=== PATIENT | male | born 1940 | race Hispanic/Latino ===

== ENCOUNTER → 2017-04-14 | Outpatient (CLI) | payer OTHER, MEDICARE ==
[~2017-04-14] MED LIST: AMLO5TAB2 PO; FERS325 PO; FURO-152 PO; FURO20TA4 PO; LISI-613 PO; METF500T6 PO; METO25TA6 PO; METOPROLOL PO; OMEP20CA10 PO; SIME80TA29 PO; SIMV20TA6 PO; Simvastatin PO; TAMS0.4C32 PO; WARF-67 PO; WARF4TAB72 PO
== END | disposition home or self-care (01) ==
LOC: RAH 08:30
PROVIDERS: ATTEND Family Medicine
DX: I08.3 Combined rheumatic disorders of mitral, aortic and tricuspid valves (principal); I50.20 Unspecified systolic (congestive) heart failure; Z95.1 Presence of aortocoronary bypass graft; Z95.2 Presence of prosthetic heart valve; Z95.0 Presence of cardiac pacemaker
CPT/HCPCS: 76700; 93306

== ENCOUNTER 2017-04-20 21:57 | Emergency (ER) | payer OTHER, MEDICARE ==
[~2017-04-20 21:57] MED LIST changes: -AMLO5TAB2 PO; -FERS325 PO; -FURO20TA4 PO; -METOPROLOL PO; -SIME80TA29 PO; -SIMV20TA6 PO
[2017-04-20 22:53] LABS: APPEARANCE,URINE Clear (CLEAR); BILIRUBIN,URINE Negative (NEGATIVE); COLOR,URINE Yellow (YELLOW); GLUCOSE, URINE (UA) 250 mg/dL (NEGATIVE); KETONES,URINE Negative (NEGATIVE); LEUKOCYTE ESTERASE ,URINE Negative (NEGATIVE); NITRATE,URINE Negative (NEGATIVE); OCCULT BLOOD,URINE Moderate (NEGATIVE); PROTEIN,URINE 300 (NEGATIVE); UROBILINOGEN,URINE 0.2 mg/dL (0.2-1.0)
[2017-04-20 23:11] LABS: BACTERIA,URINE Few /HPF (None Seen); RBC,URINE 0-1 /HPF (0-1)
[2017-04-20 23:12] LABS: AMORPHOUS SEDIMENT,UR Few /LPF (None Seen); HYALINE CASTS, URINE 0-1 /LPF (0-1 /LPF); MUCUS,URINE Few LPF (None Seen); SQUAMOUS EPITHELIAL CELL,UR None Seen /LPF (0-2)
[2017-04-20] MEDS ORDERED: PHENAZOPYRIDINE HCL 200 MG TABLET ONE (23:23)
[2017-04-20 23:52] LABS: BASOPHILS % (AUTO) 0.2 % (0.0-5.0); EOSINOPHILS % (AUTO) 0.1 % (0.0-8.0); HEMATOCRIT 38.4 % (42-54); LYMPHOCYTES % (AUTO) 5.8 % (21.0-51.0); MEAN CORPUSCULAR HEMOGLOBIN 28.5 pg (27.0-33.0); MEAN CORPUSCULAR HGB CONC 32.9 g/dL (32.0-36.0); MEAN CORPUSCULAR VOLUME 86.4 fL (79-99); MONOCYTES % (AUTO) 9.2 % (3.0-13.0); NEUTROPHILS % (AUTO) 84.7 % (40.0-77.0); PLATELET COUNT (AUTO) 160 K/uL (130-400); RED BLOOD CELL COUNT(AUTO) 4.44 MIL/uL (4.50-6.20); RED CELL DISTRIBUTION WIDTH 13.8 % (11.0-15.5); WHITE BLOOD COUNT (AUTO) 11.5 K/uL (4.8-10.8)
[2017-04-20 23:59] LABS: CREATININE 1.3 mg/dL (0.5-1.5); POTASSIUM 4.3 mmol/L (3.5-5.1)
[2017-04-21 00:04] LABS: ALBUMIN 2.7 g/dL (3.5-5.0); BILIRUBIN,TOTAL 0.4 mg/dL (0.2-1.0)
[2017-04-21 01:07] LABS: INR 2.26 (0.85-1.15); PARTIAL THROMBOPLASTIN TIME 39.5 SEC (26.3-35.5); PROTHROMBIN TIME 23.4 SEC (9.6-11.6)
== END 2017-04-21 01:35 | disposition home or self-care (01) ==
LOC: EDH 21:57
DX: E11.9 Type 2 diabetes mellitus without complications (principal); R30.0 Dysuria; R35.0 Frequency of micturition; I10 Essential (primary) hypertension; E78.5 Hyperlipidemia, unspecified
CPT/HCPCS: 36415; 80053; 81001; 85025; 85610; 85730

== ENCOUNTER → 2017-06-12 | Outpatient (CLI) | payer OTHER, MEDICARE ==
[~2017-06-12] MED LIST changes: +AMLO5TAB2 PO; +FERS325 PO; +FURO20TA4 PO; +IOPAMIDOL-370 100 ML VIAL IV ONE; +METOPROLOL PO; +SIME80TA29 PO; +SIMV20TA6 PO
== END ==
LOC: RAH 07:28
PROVIDERS: ATTEND Family Medicine
DX: N28.1 Cyst of kidney, acquired (principal); N28.89 Other specified disorders of kidney and ureter
CPT/HCPCS: 74170; Q9967

== ENCOUNTER 2017-08-14 08:10 | Day surgery (SDC) | payer OTHER, MEDICARE ==
[2017-08-12 15:46] VITALS: BP 145/65
[2017-08-12 15:55] LABS: BASOPHILS % (AUTO) 0.4 % (0.0-5.0); EOSINOPHILS % (AUTO) 1.3 % (0.0-8.0); HEMATOCRIT 38.3 % (42-54); LYMPHOCYTES % (AUTO) 13.9 % (21.0-51.0); MEAN CORPUSCULAR HEMOGLOBIN 29.1 pg (27.0-33.0); MEAN CORPUSCULAR HGB CONC 32.9 g/dL (32.0-36.0); MEAN CORPUSCULAR VOLUME 88.4 fL (79-99); MONOCYTES % (AUTO) 10.8 % (3.0-13.0); NEUTROPHILS % (AUTO) 73.6 % (40.0-77.0); PLATELET COUNT (AUTO) 168 K/uL (130-400); RED BLOOD CELL COUNT(AUTO) 4.33 MIL/uL (4.50-6.20); RED CELL DISTRIBUTION WIDTH 14.8 % (11.0-15.5); WHITE BLOOD COUNT (AUTO) 7.1 K/uL (4.8-10.8)
[2017-08-12 16:02] LABS: APPEARANCE,URINE Clear (CLEAR); BILIRUBIN,URINE Negative (NEGATIVE); COLOR,URINE Yellow (YELLOW); GLUCOSE, URINE (UA) Negative (NEGATIVE); KETONES,URINE Trace mg/dL (NEGATIVE); LEUKOCYTE ESTERASE ,URINE Negative (NEGATIVE); NITRATE,URINE Negative (NEGATIVE); OCCULT BLOOD,URINE Small (NEGATIVE); PROTEIN,URINE 300 (NEGATIVE)
[2017-08-12 16:07] LABS: CREATININE 1.3 mg/dL (0.5-1.5); POTASSIUM 5.3 mmol/L (3.5-5.1)
[2017-08-12 16:11] LABS: INR 2.33 (0.85-1.15); PARTIAL THROMBOPLASTIN TIME 35.6 SEC (26.3-35.5); PROTHROMBIN TIME 24.1 SEC (9.6-11.6)
[2017-08-12 16:15] LABS: BACTERIA,URINE Few /HPF (None Seen); MUCUS,URINE Rare LPF (None Seen); SQUAMOUS EPITHELIAL CELL,UR Few /HPF (0-2)
[~2017-08-14] VITALS: Ht 158.8 cm; Wt 81.3 kg
[2017-08-14] VITALS (9 sets, daily range): BP systolic 125–156; BP diastolic 53–75
[~2017-08-14 08:10] MED LIST changes: -AMLO5TAB2 PO; -FERS325 PO; -FURO20TA4 PO; -IOPAMIDOL-370 100 ML VIAL IV ONE; -METOPROLOL PO; -SIME80TA29 PO; -SIMV20TA6 PO; +SODIUM CHLORIDE 0.9% 500ML 500 ML IV SCH
[2017-08-14 08:44] LABS: CREATININE 1.1 mg/dL (0.5-1.5); POTASSIUM 5.1 mmol/L (3.5-5.1)
[2017-08-14 08:51] LABS: INR 1.15 (0.85-1.15); PARTIAL THROMBOPLASTIN TIME 28.2 SEC (26.3-35.5)
[2017-08-14] MEDS ORDERED: FERS325 PO (09:05)
[2017-08-14] MEDS ORDERED: AMLO5TAB2 PO (09:05)
[2017-08-14] MEDS ORDERED: LISI-613 PO (09:05)
[2017-08-14] MEDS ORDERED: WARF-67 PO (09:05)
[2017-08-14] MEDS ORDERED: SIME80TA29 PO (09:05)
[2017-08-14] MEDS ORDERED: METOPROLOL PO (09:05)
[2017-08-14] MEDS ORDERED: SIMV20TA6 PO (09:08)
[2017-08-14] MEDS ORDERED: LIDOCAINE HCL 1% 20 ML VIAL ONE (09:25)
[2017-08-14] MEDS ORDERED: IOPAMIDOL-370 100 ML VIAL IV ONE (09:25)
[2017-08-14] MEDS ORDERED: ISOVUE-370 50ML VIAL IV ONE (09:25)
[2017-08-14] MEDS ORDERED: NITROGLYCERIN 5 MG/ML 10 ML VIAL IV ONE (09:25)
[2017-08-14] MEDS ORDERED: LIDOCAINE HCL 2% 20ML ONE (09:47)
[2017-08-14] MEDS ORDERED: LABETALOL HCL 5 MG/ML 20ML VIAL IV ONE (10:10)
[2017-08-14] MEDS ORDERED: DEXTROSE 50%-WATER 50 ML DISP.SYRIN IV PRN (10:15)
[2017-08-14] MEDS ORDERED: NITROGLYCERIN 0.4 MG SL TAB SL PRN (10:15)
[2017-08-14] MEDS ORDERED: GLUCAGON 1MG KIT 1 MG ML IM PRN (10:15)
[2017-08-14] MEDS ORDERED: FURO20TA4 PO (10:20)
[2017-08-14] MEDS ORDERED: INSULIN HUMULIN R 100 UNIT/ML 3ML SQ SCH (11:30)
== END 2017-08-14 15:02 | disposition home or self-care (01) ==
LOC: DAH 08:10
PROVIDERS: ATTEND Internal Medicine Cardiovascular Disease
DX: I35.0 Nonrheumatic aortic (valve) stenosis (principal); Z95.0 Presence of cardiac pacemaker; Z68.32 Body mass index [BMI] 32.0-32.9, adult; Z79.899 Other long term (current) drug therapy; I11.0 Hypertensive heart disease with heart failure; I50.89 Other heart failure; E11.9 Type 2 diabetes mellitus without complications; Z79.01 Long term (current) use of anticoagulants
CPT/HCPCS: 36415 ×2; 71045; 80048 ×2; 81001; 82948 ×2; 83880; 85025; 85610 ×2; 85730 ×2; 93005; 93454; A4606; C1760; C1894 ×2; J1644; J3490 ×3; Q9967

== ENCOUNTER 2017-09-26 06:02 | Observation (INO) | payer OTHER, MEDICARE ==
[2017-09-23 08:59] VITALS: BP 139/66
[2017-09-23 09:01] LABS: BASOPHILS % (AUTO) 0.3 % (0.0-5.0); EOSINOPHILS % (AUTO) 1.4 % (0.0-8.0); HEMATOCRIT 37.3 % (42-54); LYMPHOCYTES % (AUTO) 11.7 % (21.0-51.0); MEAN CORPUSCULAR HEMOGLOBIN 29.7 pg (27.0-33.0); MEAN CORPUSCULAR HGB CONC 33.6 g/dL (32.0-36.0); MEAN CORPUSCULAR VOLUME 88.3 fL (79-99); NEUTROPHILS % (AUTO) 77.6 % (40.0-77.0); PLATELET COUNT (AUTO) 154 K/uL (130-400); RED BLOOD CELL COUNT(AUTO) 4.23 MIL/uL (4.50-6.20); RED CELL DISTRIBUTION WIDTH 13.8 % (11.0-15.5); WHITE BLOOD COUNT (AUTO) 6.6 K/uL (4.8-10.8)
[2017-09-23 09:12] LABS: CREATININE 1.3 mg/dL (0.5-1.5); POTASSIUM 5.2 mmol/L (3.5-5.1)
[2017-09-23 09:13] LABS: INR 2.15 (0.85-1.15); PROTHROMBIN TIME 22.2 SEC (9.6-11.6)
[2017-09-26] VITALS (13 sets, daily range): BP systolic 109–149; BP diastolic 57–80
[~2017-09-26] VITALS: Ht 160 cm; Wt 81.1 kg
[2017-09-26] MEDS: CEFAZOLIN SODIUM 1 GM VIAL IVP SCH ×2 (05:00→22:39)
[~2017-09-26 06:02] MED LIST changes: +AMLO5TAB2 PO; +FERS325 PO; -FURO-152 PO; +FURO20TA4 PO; -METO25TA6 PO; +METOPROLOL PO; +SIME80TA29 PO; +SIMV20TA6 PO; -SODIUM CHLORIDE 0.9% 500ML 500 ML IV SCH; -Simvastatin PO; -WARF4TAB72 PO
[2017-09-26] MEDS ORDERED: SODIUM CHLORIDE 0.9% 1000ML 1,000 ML IV ONE (06:30)
[2017-09-26] MEDS ORDERED: FURO20TA4 PO (06:55)
[2017-09-26] MEDS ORDERED: BUPIVACAINE/PF 0.25% 30ML VIAL IJ ONE (09:50)
[2017-09-26] MEDS ORDERED: LIDOCAINE HCL-MPF 2% 5ML VIAL ONE (09:50)
[2017-09-26] MEDS ORDERED: CEFAZOLIN SODIUM 1 GM VIAL ONE (09:51)
[2017-09-26] MEDS ORDERED: MIDAZOLAM HCL 1 MG/ML 2ML VIAL ONE ×3 (09:51→11:21)
[2017-09-26] MEDS ORDERED: MEPERIDINE-PF 25 MG/ML SYG ONE ×3 (09:51→11:21)
[2017-09-26] MEDS ORDERED: IODIXANOL 320 MG/ML 100 ML VIAL ONE (10:26)
[2017-09-26] MEDS ORDERED: ACETAMINOPHEN 325 MG TAB PO PRN (12:00)
[2017-09-26] MEDS ORDERED: ACETAMINOPHEN-CODEINE 300/30MG TAB PO PRN ×2 (12:00)
[2017-09-26 13:36] LABS: INR 1.48 (0.85-1.15); PROTHROMBIN TIME 15.4 SEC (9.6-11.6)
[2017-09-26] MEDS: METOPROLOL TARTRATE 25 MG TAB PO SCH (20:18)
[2017-09-26] MEDS ORDERED: TAMSULOSIN HCL 0.4 MG CAP.ER.24H PO SCH (21:00)
[2017-09-26] MEDS ORDERED: ATORVASTATIN CALCIUM 10 MG TABLET PO SCH (21:00)
[2017-09-26] MEDS ORDERED: WARFARIN SODIUM 7.5 MG TAB PO SCH (21:00)
[2017-09-27 03:20] VITALS: BP 136/68
[2017-09-27 04:02] LABS: INR 1.34 (0.85-1.15)
[2017-09-27 07:21] VITALS: BP 146/79
[2017-09-27] MEDS: METOPROLOL TARTRATE 25 MG TAB PO SCH (07:58)
[2017-09-27] MEDS ORDERED: PANTOPRAZOLE SODIUM 40 MG TABLET.DR PO SCH (09:00)
[2017-09-27] MEDS ORDERED: SIMETHICONE 80 MG TAB.CHEW PO SCH (09:00)
[2017-09-27] MEDS ORDERED: AMLODIPINE BESYLATE 5 MG TAB PO SCH (09:00)
[2017-09-27] MEDS ORDERED: LISINOPRIL 20 MG TABLET PO SCH (09:00)
[2017-09-27] MEDS ORDERED: FUROSEMIDE 20 MG TABLET PO SCH (09:00)
== END 2017-09-27 12:06 | disposition home or self-care (01) ==
LOC: DAH 06:02 → 2DH 06:03
PROVIDERS: ADMIT Internal Medicine Pulmonary Disease; ATTEND Internal Medicine Pulmonary Disease
DX: I44.2 Atrioventricular block, complete (principal); I11.0 Hypertensive heart disease with heart failure; I50.22 Chronic systolic (congestive) heart failure; E11.9 Type 2 diabetes mellitus without complications; N40.0 Benign prostatic hyperplasia without lower urinary tract symptoms; I48.91 Unspecified atrial fibrillation; Z95.2 Presence of prosthetic heart valve; Z95.810 Presence of automatic (implantable) cardiac defibrillator; Z79.01 Long term (current) use of anticoagulants; Z79.899 Other long term (current) drug therapy
CPT/HCPCS: 33225; 33233; 33234; 33249; 36415 ×3; 71045; 80048; 82948 ×4; 85025; 85610 ×3; 85730; 93005; A4606; C1769; C1882; C1895 ×2; C1900; G0378 ×30; J0690; J2175 ×3; J2250 ×3; J3490 ×2; J7030; Q9967; 99156; 99157

== ENCOUNTER 2017-12-28 03:32 | Inpatient (IN) | payer OTHER, MEDICARE ==
[~2017-12-28] VITALS: Ht 160 cm; Wt 80.3 kg
[~2017-12-28 03:32] MED LIST changes: -AMLO5TAB2 PO; +AMLO5TAB7 PO; +METF-444 PO; -METF500T6 PO
[2017-12-28 03:51] LABS: BASOPHILS % (AUTO) 0.7 % (0.0-5.0); EOSINOPHILS % (AUTO) 1.1 % (0.0-8.0); LYMPHOCYTES % (AUTO) 10.5 % (21.0-51.0); MEAN CORPUSCULAR HEMOGLOBIN 28.6 pg (27.0-33.0); MEAN CORPUSCULAR HGB CONC 33.2 g/dL (32.0-36.0); MEAN CORPUSCULAR VOLUME 86.3 fL (79-99); MONOCYTES % (AUTO) 10.8 % (3.0-13.0); NEUTROPHILS % (AUTO) 76.9 % (40.0-77.0); PLATELET COUNT (AUTO) 132 K/uL (130-400); RED BLOOD CELL COUNT(AUTO) 4.17 MIL/uL (4.50-6.20); RED CELL DISTRIBUTION WIDTH 14.8 % (11.0-15.5); WHITE BLOOD COUNT (AUTO) 7.9 K/uL (4.8-10.8)
[2017-12-28 04:03] LABS: INR 2.41 (0.85-1.15); PARTIAL THROMBOPLASTIN TIME 36.4 SEC (26.3-35.5); PROTHROMBIN TIME 24.9 SEC (9.6-11.6)
[2017-12-28 04:13] LABS: CREATININE 1.3 mg/dL (0.5-1.5); POTASSIUM 4.1 mmol/L (3.5-5.1)
[2017-12-28 04:24] LABS: ALBUMIN 3.4 g/dL (3.5-5.0); BILIRUBIN,TOTAL 0.8 mg/dL (0.2-1.0)
[2017-12-28] MEDS ORDERED: FUROSEMIDE 10 MG/ML 4ML VIAL ONE (04:33)
[2017-12-28 04:36] LABS: APPEARANCE,URINE Clear (CLEAR); BILIRUBIN,URINE Negative (NEGATIVE); COLOR,URINE Yellow (YELLOW); GLUCOSE, URINE (UA) Negative (NEGATIVE); KETONES,URINE Negative (NEGATIVE); LEUKOCYTE ESTERASE ,URINE Trace (NEGATIVE); NITRATE,URINE Negative (NEGATIVE); OCCULT BLOOD,URINE Moderate (NEGATIVE); PROTEIN,URINE 300 (NEGATIVE)
[2017-12-28 04:42] LABS: BACTERIA,URINE None Seen /HPF (None Seen); SQUAMOUS EPITHELIAL CELL,UR Moderate /HPF (0-2)
[2017-12-28] MEDS ORDERED: POTASSIUM CHLORIDE 20MEQ/100ML 100 ML IV PRN (06:30)
[2017-12-28] MEDS ORDERED: POTASSIUM CHLORIDE 10% ELIXIR 20 MEQ/15 ML UDCUP PO PRN (06:30)
[2017-12-28] MEDS ORDERED: LIDOCAINE HCL-MPF 1% 2ML VIAL IJ PRN (06:30)
[2017-12-28] MEDS: FUROSEMIDE 10 MG/ML 2ML VIAL IVP SCH ×3 (06:30→22:39)
[2017-12-28] MEDS: INSULIN R PO SS1 SQ SCH ×3 (07:30→21:00)
[2017-12-28 08:45] VITALS: BP 163/88
[2017-12-28] MEDS ORDERED: LISINOPRIL 20 MG TABLET ONE (10:22)
[2017-12-28] MEDS ORDERED: METOPROLOL TARTRATE 25 MG TAB ONE (10:23)
[2017-12-28] MEDS ORDERED: AMLODIPINE BESYLATE 5 MG TAB PO ONE (10:23)
[2017-12-28] MEDS: METOPROLOL TARTRATE 25 MG TAB PO SCH ×2 (10:31→21:09)
[2017-12-28] MEDS: PANTOPRAZOLE SODIUM 40 MG TABLET.DR PO SCH (10:31)
[2017-12-28] MEDS: LISINOPRIL 20 MG TABLET PO SCH ×2 (10:31→10:32)
[2017-12-28] MEDS: AMLODIPINE BESYLATE 5 MG TAB PO SCH (10:32)
[2017-12-28 12:30] VITALS: BP 150/75
[2017-12-28 16:56] VITALS: BP 144/70
[2017-12-28] MEDS: METFORMIN HCL 500 MG TABLET PO SCH (17:42)
[2017-12-28 19:45] VITALS: BP 172/79
[2017-12-28] MEDS: FERROUS SULFATE 325 MG TABLET.DR PO SCH (21:09)
[2017-12-28] MEDS: WARFARIN SODIUM 2 MG TAB PO SCH (21:09)
[2017-12-28] MEDS: TAMSULOSIN HCL 0.4 MG CAP.ER.24H PO SCH (21:09)
[2017-12-28] MEDS: SIMVASTATIN 20 MG TABLET PO SCH (21:09)
[2017-12-28 23:39] VITALS: BP 139/57
[2017-12-29 03:57] VITALS: BP 147/66
[2017-12-29 06:17] LABS: CREATININE 1.4 mg/dL (0.5-1.5); MAGNESIUM 1.7 mg/dL (1.80-2.40); POTASSIUM 3.7 mmol/L (3.5-5.1)
[2017-12-29] MEDS: INSULIN R PO SS1 SQ SCH ×4 (06:50→20:21)
[2017-12-29] MEDS: FUROSEMIDE 10 MG/ML 2ML VIAL IVP SCH ×3 (06:51→23:05)
[2017-12-29 08:16] VITALS: BP 148/72
[2017-12-29] MEDS: PANTOPRAZOLE SODIUM 40 MG TABLET.DR PO SCH (09:37)
[2017-12-29] MEDS: METOPROLOL TARTRATE 25 MG TAB PO SCH ×2 (09:37→21:03)
[2017-12-29] MEDS: LISINOPRIL 20 MG TABLET PO SCH (09:38)
[2017-12-29] MEDS: AMLODIPINE BESYLATE 5 MG TAB PO SCH (09:38)
[2017-12-29] MEDS: SIMETHICONE 80 MG TAB.CHEW PO SCH (09:38)
[2017-12-29 11:36] VITALS: BP 149/63
[2017-12-29 15:56] VITALS: BP 151/75
[2017-12-29] MEDS: METFORMIN HCL 500 MG TABLET PO SCH (16:34)
[2017-12-29 19:00] VITALS: BP 160/80
[2017-12-29] MEDS: SIMVASTATIN 20 MG TABLET PO SCH (21:03)
[2017-12-29] MEDS: TAMSULOSIN HCL 0.4 MG CAP.ER.24H PO SCH (21:03)
[2017-12-29] MEDS: FERROUS SULFATE 325 MG TABLET.DR PO SCH (21:03)
[2017-12-29] MEDS: WARFARIN SODIUM 2 MG TAB PO SCH (21:05)
[2017-12-30] VITALS: BP 162/85
[2017-12-30 04:00] VITALS: BP 157/70
[2017-12-30 05:05] LABS: BASOPHILS % (AUTO) 0.5 % (0.0-5.0); EOSINOPHILS % (AUTO) 1.3 % (0.0-8.0); LYMPHOCYTES % (AUTO) 9.2 % (21.0-51.0); MEAN CORPUSCULAR HEMOGLOBIN 28.6 pg (27.0-33.0); MEAN CORPUSCULAR HGB CONC 33.2 g/dL (32.0-36.0); MEAN CORPUSCULAR VOLUME 85.9 fL (79-99); MONOCYTES % (AUTO) 12.3 % (3.0-13.0); NEUTROPHILS % (AUTO) 76.7 % (40.0-77.0); PLATELET COUNT (AUTO) 119 K/uL (130-400); RED BLOOD CELL COUNT(AUTO) 3.96 MIL/uL (4.50-6.20); RED CELL DISTRIBUTION WIDTH 14.7 % (11.0-15.5); WHITE BLOOD COUNT (AUTO) 5.7 K/uL (4.8-10.8)
[2017-12-30 05:18] LABS: INR 2.2 (0.85-1.15); PARTIAL THROMBOPLASTIN TIME 36.4 SEC (26.3-35.5); PROTHROMBIN TIME 22.7 SEC (9.6-11.6)
[2017-12-30 05:28] LABS: ALBUMIN 3.1 g/dL (3.5-5.0); BILIRUBIN,TOTAL 0.8 mg/dL (0.2-1.0); CREATININE 1.4 mg/dL (0.5-1.5); HEMOGLOBIN A1C 6.8 % (4.0-6.0); MAGNESIUM 1.7 mg/dL (1.80-2.40); PHOSPHORUS 3.6 mg/dL (2.5-4.9); POTASSIUM 3.7 mmol/L (3.5-5.1); THYROID STIMULATING HORMONE 2.74 uIU/mL (0.36-3.74); TOTAL PROTEIN, SERUM 6.7 g/dL (6.0-8.3)
[2017-12-30] MEDS: FUROSEMIDE 10 MG/ML 2ML VIAL IVP SCH ×2 (06:05→14:17)
[2017-12-30] MEDS: INSULIN R PO SS1 SQ SCH ×4 (06:05→20:52)
[2017-12-30 06:20] LABS: B-TYPE NATRIURETIC PEPTIDE 833 pg/mL (0-100)
[2017-12-30 07:00] VITALS: BP 164/88
[2017-12-30 08:17] LABS: ABG BASE EXCESS 6.1 mmol/L (-2.0-3.0); ABG HCO3 31.8 mmol/L (21.0-28.0); ABG OXYGEN SATURATION 90.6 % (95.0-99.0); ABG PCO2 50 mmHg (35-48)
[2017-12-30] MEDS: PANTOPRAZOLE SODIUM 40 MG TABLET.DR PO SCH (08:55)
[2017-12-30] MEDS: METOPROLOL TARTRATE 25 MG TAB PO SCH ×2 (08:55→20:58)
[2017-12-30] MEDS: SIMETHICONE 80 MG TAB.CHEW PO SCH (08:55)
[2017-12-30] MEDS: LISINOPRIL 20 MG TABLET PO SCH (08:56)
[2017-12-30] MEDS: AMLODIPINE BESYLATE 5 MG TAB PO SCH (09:29)
[2017-12-30 11:00] VITALS: BP_SYST 132; BP_SYST 145; BP_DIAS 54; BP_DIAS 70
[2017-12-30] MEDS ORDERED: MAGNESIUM SULFATE 2 GM in SODIUM CHLORIDE 0.9% 50 ML IV SCH (11:30)
[2017-12-30 16:00] VITALS: BP 144/72
[2017-12-30] MEDS: METFORMIN HCL 500 MG TABLET PO SCH (17:13)
[2017-12-30 19:00] VITALS: BP 134/71
[2017-12-30] MEDS: FERROUS SULFATE 325 MG TABLET.DR PO SCH (20:57)
[2017-12-30] MEDS: SIMVASTATIN 20 MG TABLET PO SCH (21:00)
[2017-12-30] MEDS: TAMSULOSIN HCL 0.4 MG CAP.ER.24H PO SCH (21:00)
[2017-12-30] MEDS: WARFARIN SODIUM 2 MG TAB PO SCH (21:02)
[2017-12-30] MEDS: FUROSEMIDE 20 MG TABLET PO SCH (22:18)
[2017-12-31] VITALS (7 sets, daily range): BP systolic 127–150; BP diastolic 65–77
[2017-12-31 04:49] LABS: CREATININE 1.4 mg/dL (0.5-1.5); MAGNESIUM 1.8 mg/dL (1.80-2.40); PHOSPHORUS 3.8 mg/dL (2.5-4.9); POTASSIUM 3.3 mmol/L (3.5-5.1)
[2017-12-31] MEDS ORDERED: MAGNESIUM 2GM PREMIX 50ML 50 ML IV ONE (05:12)
[2017-12-31] MEDS ORDERED: SODIUM CHLORIDE 0.9% 500ML 500 ML IV ONE (05:13)
[2017-12-31] MEDS: POTASSIUM CHLORIDE 20 MEQ ERTAB PO PRN ×2 (05:16→06:41)
[2017-12-31] MEDS: INSULIN R PO SS1 SQ SCH ×4 (06:40→20:37)
[2017-12-31 07:38] LABS: ABG BASE EXCESS 6.8 mmol/L (-2.0-3.0); ABG HCO3 31.8 mmol/L (21.0-28.0); ABG OXYGEN SATURATION 92.2 % (95.0-99.0); ABG PCO2 46 mmHg (35-48)
[2017-12-31] MEDS: METOPROLOL TARTRATE 25 MG TAB PO SCH ×2 (09:14→20:37)
[2017-12-31] MEDS: SIMETHICONE 80 MG TAB.CHEW PO SCH (09:14)
[2017-12-31] MEDS: AMLODIPINE BESYLATE 5 MG TAB PO SCH (09:14)
[2017-12-31] MEDS: FUROSEMIDE 20 MG TABLET PO SCH (09:14)
[2017-12-31] MEDS: PANTOPRAZOLE SODIUM 40 MG TABLET.DR PO SCH (09:14)
[2017-12-31] MEDS: LISINOPRIL 20 MG TABLET PO SCH (09:14)
[2017-12-31 10:12] LABS: CREATININE 1.3 mg/dL (0.5-1.5); MAGNESIUM 2.2 mg/dL (1.80-2.40); POTASSIUM 4.1 mmol/L (3.5-5.1)
[2017-12-31] MEDS ORDERED: FUROSEMIDE 20 MG TABLET PO SCH ×2 (16:00)
[2017-12-31] MEDS: FUROSEMIDE 10 MG/ML 4ML VIAL IV SCH (18:15)
[2017-12-31] MEDS ORDERED: FUROSEMIDE 10 MG/ML 4ML VIAL ONE (18:26)
[2017-12-31] MEDS: METFORMIN HCL 500 MG TABLET PO SCH (18:31)
[2017-12-31] MEDS: FERROUS SULFATE 325 MG TABLET.DR PO SCH (20:36)
[2017-12-31] MEDS: TAMSULOSIN HCL 0.4 MG CAP.ER.24H PO SCH (20:37)
[2017-12-31] MEDS: SIMVASTATIN 20 MG TABLET PO SCH (20:37)
[2017-12-31] MEDS: WARFARIN SODIUM 2 MG TAB PO SCH (20:37)
[2018-01-01 03:46] VITALS: BP 145/69
[2018-01-01 05:06] LABS: HEMATOCRIT 33.8 % (42-54); MEAN CORPUSCULAR HEMOGLOBIN 28.6 pg (27.0-33.0); MEAN CORPUSCULAR HGB CONC 33.2 g/dL (32.0-36.0); MEAN CORPUSCULAR VOLUME 86.3 fL (79-99); PLATELET COUNT (AUTO) 118 K/uL (130-400); RED BLOOD CELL COUNT(AUTO) 3.91 MIL/uL (4.50-6.20); RED CELL DISTRIBUTION WIDTH 14.8 % (11.0-15.5); WHITE BLOOD COUNT (AUTO) 5.1 K/uL (4.8-10.8)
[2018-01-01 05:19] LABS: ALBUMIN 3.2 g/dL (3.5-5.0); BILIRUBIN,TOTAL 0.7 mg/dL (0.2-1.0); CREATININE 1.4 mg/dL (0.5-1.5); POTASSIUM 3.9 mmol/L (3.5-5.1)
[2018-01-01] MEDS: INSULIN R PO SS1 SQ SCH (05:49)
[2018-01-01] MEDS: FUROSEMIDE 10 MG/ML 4ML VIAL IV SCH (06:04)
[2018-01-01 07:00] VITALS: BP 160/74
[2018-01-01] MEDS: PANTOPRAZOLE SODIUM 40 MG TABLET.DR PO SCH (10:54)
[2018-01-01] MEDS: SIMETHICONE 80 MG TAB.CHEW PO SCH (10:54)
[2018-01-01] MEDS: METOPROLOL TARTRATE 25 MG TAB PO SCH (10:54)
[2018-01-01] MEDS: AMLODIPINE BESYLATE 5 MG TAB PO SCH (10:55)
[2018-01-01] MEDS: LISINOPRIL 20 MG TABLET PO SCH (10:55)
[2018-01-01 11:00] VITALS: BP 128/75
== END 2018-01-01 14:05 | disposition home or self-care (01) | DRG 291 ==
LOC: EDH 03:32 → OBSVTOIN 05:25 → EDHIP 05:25 → INTOOBSV 05:25 → 3AH 08:15 → 3CH 12-29 08:45
PROVIDERS: ADMIT Internal Medicine Critical Care Medicine; ATTEND Internal Medicine Critical Care Medicine
DX: I13.0 Hypertensive heart and chronic kidney disease with heart failure and stage 1 through stage 4 chronic kidney disease, or unspecified chronic kidney disease (principal); J96.01 Acute respiratory failure with hypoxia; I50.43 Acute on chronic combined systolic (congestive) and diastolic (congestive) heart failure; I42.9 Cardiomyopathy, unspecified; N18.3 Chronic kidney disease, stage 3 (moderate); E11.22 Type 2 diabetes mellitus with diabetic chronic kidney disease; I48.2 Chronic atrial fibrillation; E78.5 Hyperlipidemia, unspecified; Z79.01 Long term (current) use of anticoagulants; Z95.0 Presence of cardiac pacemaker; Z95.2 Presence of prosthetic heart valve; Z91.19 Patient's noncompliance with other medical treatment and regimen
CPT/HCPCS: 36415; 36600; 71045; 71046; 80048; 80053; 80061; 81001; 81003; 82550; 82803; 82948; 83036; 83735; 83874; 83880; 84100; 84439; 84443; 84484; 85025; 85027; 85610; 85730; 93005; 93306; J1940; J3475; J7040

== ENCOUNTER 2022-02-27 17:42 | Observation (INO) | payer OTHER, MEDICARE ==
[~2022-02-27] VITALS: Ht 157.5 cm; Wt 67.9 kg
[~2022-02-27 17:42] MED LIST changes: +AMLO-257 PO; -AMLO5TAB7 PO; -FURO20TA4 PO; -LISI-613 PO; +LISI20TA24 PO; -OMEP20CA10 PO; +OMEP20CA12 PO; -SIME80TA29 PO; +SIME80TA78 PO; +SIMV-43 PO; -SIMV20TA6 PO
[2022-02-27 18:40] LABS: BASOPHILS % (AUTO) 0.2 % (0.0-5.0); EOSINOPHILS % (AUTO) 0.3 % (0.0-8.0); HEMATOCRIT 33.5 % (42-54); LYMPHOCYTES % (AUTO) 6.9 % (21.0-51.0); MEAN CORPUSCULAR HEMOGLOBIN 28.3 pg (27.0-33.0); MEAN CORPUSCULAR HGB CONC 32.2 g/dL (32.0-36.0); MEAN CORPUSCULAR VOLUME 87.7 fL (79-99); MONOCYTES % (AUTO) 7.6 % (3.0-13.0); NEUTROPHILS % (AUTO) 83.8 % (40.0-77.0); PLATELET COUNT (AUTO) 321 K/uL (130-400); RED BLOOD CELL COUNT(AUTO) 3.82 MIL/uL (4.50-6.20); RED CELL DISTRIBUTION WIDTH 14.2 % (11.0-15.5); WHITE BLOOD COUNT (AUTO) 11.8 K/uL (4.8-10.8)
[2022-02-27 18:52] LABS: CREATININE 1.4 mg/dL (0.5-1.5); POTASSIUM 4.2 mmol/L (3.5-5.1)
[2022-02-27 18:57] LABS: ALBUMIN 2.8 g/dL (3.5-5.0); TOTAL PROTEIN, SERUM 7.6 g/dL (6.0-8.3)
[2022-02-27] MEDS ORDERED: ONDANSETRON 4MG INJ IVP PRN (23:00)
[2022-02-27] MEDS ORDERED: MORPHINE 4 MG SYG IVP PRN (23:00)
[2022-02-27] MEDS ORDERED: ASPIRIN 325MG TAB PO ONE (23:00)
[2022-02-27] MEDS ORDERED: HYDRALAZINE 20MG/ML VIAL IV PRN (23:00)
[2022-02-27] MEDS ORDERED: ALBUTEROL 0.083% 2.5 MG/3 ML INH IH PRN (23:00)
[2022-02-27] MEDS ORDERED: ACETAMINOPHEN 325 MG TAB PO PRN (23:00)
[2022-02-27 23:22] LABS: APPEARANCE,URINE CLEAR (CLEAR); BILIRUBIN,URINE NEGATIVE (NEGATIVE); COLOR,URINE YELLOW (YELLOW); GLUCOSE, URINE (UA) >=1000 mg/dL (NEGATIVE); KETONES,URINE NEGATIVE (NEGATIVE); LEUKOCYTE ESTERASE ,URINE NEGATIVE Leu/uL (NEGATIVE); NITRATE,URINE NEGATIVE (NEGATIVE); OCCULT BLOOD,URINE MODERATE (NEGATIVE); PROTEIN,URINE 200 mg/dL (NEGATIVE); UROBILINOGEN,URINE 0.2 mg/dL (0.2-1.0)
[2022-02-27 23:31] LABS: BACTERIA,URINE RARE /HPF (None Seen); SQUAMOUS EPITHELIAL CELL,UR RARE /HPF (0-2)
[2022-02-28 06:26] LABS: HEMATOCRIT 32.2 % (42-54); MEAN CORPUSCULAR HEMOGLOBIN 28.1 pg (27.0-33.0); MEAN CORPUSCULAR HGB CONC 31.7 g/dL (32.0-36.0); MEAN CORPUSCULAR VOLUME 88.7 fL (79-99); RED BLOOD CELL COUNT(AUTO) 3.63 MIL/uL (4.50-6.20); WHITE BLOOD COUNT (AUTO) 9.6 K/uL (4.8-10.8)
[2022-02-28 06:47] LABS: CREATININE 1.2 mg/dL (0.5-1.5); MAGNESIUM 2.3 mg/dL (1.80-2.40); PHOSPHORUS 3.8 mg/dL (2.5-4.9); POTASSIUM 3.8 mmol/L (3.5-5.1)
[2022-02-28] MEDS: INSULIN HUMULIN R 100 UNIT/ML 3ML SQ SCH ×4 (07:30→20:18)
[2022-02-28] MEDS: ASPIRIN 81MG CHEW TAB PO SCH (08:51)
[2022-02-28] MEDS ORDERED: LEVOFLOXACIN 500 MG/D5W 100 ML IV SCH (09:00)
[2022-02-28] MEDS ORDERED: ENOXAPARIN SODIUM 80 MG/0.8 ML SQ SCH (09:00)
[2022-02-28] MEDS: FUROSEMIDE 40MG VIAL IV SCH ×2 (09:21→16:30)
[2022-02-28] MEDS ORDERED: KCL 20 MEQ ERTAB PO PRN (09:30)
[2022-02-28] MEDS ORDERED: LIDOCAINE HCL-MPF 1% 2ML VIAL IV PRN (09:30)
[2022-02-28] MEDS ORDERED: POTASSIUM CHLORIDE 20MEQ/100ML 100 ML IV PRN (09:30)
[2022-02-28] MEDS ORDERED: POTASSIUM CHLORIDE 10% ELIXIR 20 MEQ/15 ML UDCUP PO PRN (09:30)
[2022-02-28] MEDS: METOPROLOL SUCCINATE 25 MG TAB.SR.24H PO SCH (09:36)
[2022-02-28] MEDS ORDERED: OLOP2.5D16 OP (09:44)
[2022-02-28] MEDS ORDERED: ACET500C4 PO (09:44)
[2022-02-28] MEDS ORDERED: METO-408 PO (09:44)
[2022-02-28] MEDS ORDERED: FOLI0.8T2 PO (09:44)
[2022-02-28] MEDS ORDERED: FURO20TA4 PO (09:44)
[2022-02-28] MEDS ORDERED: DAPA10TA PO (09:44)
[2022-02-28 11:00] VITALS: BP 153/67
[2022-02-28 12:00] VITALS: BP 142/81
[2022-02-28 14:25] LABS: PROTHROMBIN TIME 67.7 SEC (9.6-11.6)
[2022-02-28 14:26] LABS: INR 6.93 (0.85-1.15)
[2022-02-28 16:00] VITALS: BP 152/87
[2022-02-28 20:17] VITALS: BP 142/77
[2022-02-28] MEDS ORDERED: SIMVASTATIN 20 MG TABLET PO SCH ×2 (21:00)
[2022-02-28] MEDS ORDERED: WARFARIN SODIUM 2 MG TAB PO SCH (21:00)
[2022-03-01 00:08] VITALS: BP 138/66
[2022-03-01] MEDS: FUROSEMIDE 40MG VIAL IV SCH ×2 (01:30→08:41)
[2022-03-01 04:06] VITALS: BP 144/76
[2022-03-01 04:23] LABS: HEMATOCRIT 29.9 % (42-54); MEAN CORPUSCULAR HEMOGLOBIN 28.5 pg (27.0-33.0); MEAN CORPUSCULAR HGB CONC 32.4 g/dL (32.0-36.0); MEAN CORPUSCULAR VOLUME 87.9 fL (79-99); RED BLOOD CELL COUNT(AUTO) 3.4 MIL/uL (4.50-6.20); RED CELL DISTRIBUTION WIDTH 14.1 % (11.0-15.5); WHITE BLOOD COUNT (AUTO) 8.7 K/uL (4.8-10.8)
[2022-03-01 04:39] LABS: ALBUMIN 2.3 g/dL (3.5-5.0); CREATININE 1.3 mg/dL (0.5-1.5); MAGNESIUM 2.2 mg/dL (1.80-2.40); POTASSIUM 4.3 mmol/L (3.5-5.1); TOTAL PROTEIN, SERUM 6.6 g/dL (6.0-8.3)
[2022-03-01 05:01] LABS: INR 4.3 (0.85-1.15); PROTHROMBIN TIME 43.2 SEC (9.6-11.6)
[2022-03-01] MEDS: INSULIN HUMULIN R 100 UNIT/ML 3ML SQ SCH ×2 (06:38→11:44)
[2022-03-01 08:00] VITALS: BP 124/59
[2022-03-01] MEDS: METOPROLOL SUCCINATE 25 MG TAB.SR.24H PO SCH (08:47)
[2022-03-01] MEDS: ASPIRIN 81MG CHEW TAB PO SCH (08:47)
[2022-03-01] MEDS ORDERED: Vitamin B Complex/Vit C/Folic Acid PO SCH (09:00)
[2022-03-01] MEDS ORDERED: AMLODIPINE 5 MG TAB PO SCH (09:00)
[2022-03-01] MEDS ORDERED: SIMETHICONE 80 MG TAB.CHEW PO SCH (09:00)
[2022-03-01] MEDS ORDERED: FAMOTIDINE 20MG TAB PO SCH (09:00)
[2022-03-01] MEDS ORDERED: OLOPATADINE HCL 0.1% 5ML DROPS OP SCH (09:00)
[2022-03-01] MEDS ORDERED: LISINOPRIL 20 MG TABLET PO SCH (09:00)
[2022-03-01 11:36] VITALS: BP 133/67
[2022-03-01] MEDS ORDERED: FURO40TA7 PO (16:00)
== END 2022-03-01 18:21 | disposition home or self-care (01) ==
LOC: EDH 17:42 → EDHIP 22:32 → 2DH 02-28 09:58
PROVIDERS: ADMIT Internal Medicine Critical Care Medicine; ATTEND Internal Medicine Critical Care Medicine
DX: I11.0 Hypertensive heart disease with heart failure (principal); Z20.822 Contact with and (suspected) exposure to COVID-19; I50.43 Acute on chronic combined systolic (congestive) and diastolic (congestive) heart failure; I21.A1 Myocardial infarction type 2; I42.0 Dilated cardiomyopathy; R77.8 Other specified abnormalities of plasma proteins; D72.829 Elevated white blood cell count, unspecified; E11.65 Type 2 diabetes mellitus with hyperglycemia; E86.0 Dehydration; D64.9 Anemia, unspecified; E78.00 Pure hypercholesterolemia, unspecified; I25.10 Atherosclerotic heart disease of native coronary artery without angina pectoris; I35.0 Nonrheumatic aortic (valve) stenosis; I49.3 Ventricular premature depolarization; K21.9 Gastro-esophageal reflux disease without esophagitis; N40.0 Benign prostatic hyperplasia without lower urinary tract symptoms; Z95.810 Presence of automatic (implantable) cardiac defibrillator; Z95.2 Presence of prosthetic heart valve; Z95.1 Presence of aortocoronary bypass graft; Z79.01 Long term (current) use of anticoagulants; Z79.899 Other long term (current) drug therapy
CPT/HCPCS: 99285; 82550 ×3; 83735 ×3; 83874 ×3; 84484 ×4; 80053 ×2; 85025; 85378; 87804 ×2; 81001; 36415 ×3; 87635; 71045 ×2; 93005; 96376 ×2; 96372 ×2; 96365; 96375; 84100; 80048; 83880; 85027 ×2; 85610 ×2; 82948 ×6; 83605; 93306; 93356; 93970; 94664; 84145; 94760 ×2; G0378 ×41; C9803; J1956; J1650; J1940 ×4; J1815 ×3

== ENCOUNTER 2022-05-07 07:15 | Emergency (ER) | payer OTHER, MEDICARE ==
[~2022-05-07] VITALS: Ht 160 cm; Wt 71.7 kg
[~2022-05-07 07:15] MED LIST changes: +ACET500C4 PO; +DAPA10TA PO; +FOLI0.8T2 PO; +FURO40TA7 PO; -LISI20TA24 PO; +METO-408 PO; +OLOP2.5D16 OP
[2022-05-07 08:26] LABS: BASOPHILS % (AUTO) 0.1 % (0.0-5.0); HEMATOCRIT 29.1 % (42-54); LYMPHOCYTES % (AUTO) 3.3 % (21.0-51.0); MEAN CORPUSCULAR HGB CONC 32.3 g/dL (32.0-36.0); MEAN CORPUSCULAR VOLUME 89.8 fL (79-99); MONOCYTES % (AUTO) 9.7 % (3.0-13.0); NEUTROPHILS % (AUTO) 85.8 % (40.0-77.0); PLATELET COUNT (AUTO) 142 K/uL (130-400); RED BLOOD CELL COUNT(AUTO) 3.24 MIL/uL (4.50-6.20); RED CELL DISTRIBUTION WIDTH 14.4 % (11.0-15.5); WHITE BLOOD COUNT (AUTO) 8.9 K/uL (4.8-10.8)
[2022-05-07 08:37] LABS: INR 1.14 (0.85-1.15); PROTHROMBIN TIME 12.3 SEC (9.6-11.6)
[2022-05-07 08:38] LABS: PARTIAL THROMBOPLASTIN TIME 29.6 SEC (26.3-35.5)
[2022-05-07 08:44] LABS: B-TYPE NATRIURETIC PEPTIDE 1020 pg/mL (0-100); CREATININE 1.2 mg/dL (0.5-1.5); POTASSIUM 3.9 mmol/L (3.5-5.1); TOTAL PROTEIN, SERUM 6.6 g/dL (6.0-8.3)
[2022-05-07] MEDS: ACETAMINOPHEN 325 MG TAB PO SCH (08:54)
[2022-05-07] MEDS: FUROSEMIDE 40MG VIAL IV ONE (10:47)
[2022-05-07 11:25] VITALS: BP 145/88
[2022-05-11] MEDS ORDERED: FURO20TA4 PO (23:59)
[2022-05-11] MEDS ORDERED: TAMS-1 PO (23:59)
[2022-05-11] MEDS ORDERED: WARF4TAB72 PO (23:59)
[2022-05-12] MEDS ORDERED: METO-408 PO
[2022-05-12] MEDS ORDERED: METF-526 PO
[2022-05-12] MEDS ORDERED: AMLO-258 PO
== END 2022-05-07 13:07 | disposition home or self-care (01) ==
LOC: EDH 07:15
DX: S96.812A Strain of other specified muscles and tendons at ankle and foot level, left foot, initial encounter (principal); I11.0 Hypertensive heart disease with heart failure; I50.9 Heart failure, unspecified; E11.9 Type 2 diabetes mellitus without complications; E78.00 Pure hypercholesterolemia, unspecified; Z79.01 Long term (current) use of anticoagulants; Z79.84 Long term (current) use of oral hypoglycemic drugs; Z79.899 Other long term (current) drug therapy; Z95.810 Presence of automatic (implantable) cardiac defibrillator; W18.39XA Other fall on same level, initial encounter; Y93.89 Activity, other specified; Y92.531 Health care provider office as the place of occurrence of the external cause; Y99.8 Other external cause status
CPT/HCPCS: 99284; 96374; 80053; 83880; 85025; 85610; 85730; 36415; 73610; J1940

== ENCOUNTER 2022-07-02 17:58 | Emergency (ER) | payer OTHER, MEDICARE ==
[~2022-07-02] VITALS: Ht 167.6 cm; Wt 70.3 kg
[~2022-07-02 17:58] MED LIST changes: -ACET500C4 PO; -AMLO-257 PO; +AMLO-258 PO; -DAPA10TA PO; -FERS325 PO; -FOLI0.8T2 PO; +FURO20TA4 PO; -FURO40TA7 PO; -METF-444 PO; +METF-526 PO; -METOPROLOL PO; -OLOP2.5D16 OP; -OMEP20CA12 PO; -SIME80TA78 PO; -SIMV-43 PO; +TAMS-1 PO; -TAMS0.4C32 PO; -WARF-67 PO; +WARF4TAB72 PO
[2022-07-02 18:01] VITALS: BP 116/58
== END 2022-07-02 19:00 | disposition home or self-care (01) ==
LOC: EDH 17:58
DX: S00.03XA Contusion of scalp, initial encounter (principal); E11.9 Type 2 diabetes mellitus without complications; E78.00 Pure hypercholesterolemia, unspecified; I10 Essential (primary) hypertension; I25.10 Atherosclerotic heart disease of native coronary artery without angina pectoris; Z79.01 Long term (current) use of anticoagulants; Z79.899 Other long term (current) drug therapy; W01.10XA Fall on same level from slipping, tripping and stumbling with subsequent striking against unspecified object, initial encounter; Y93.89 Activity, other specified; Y92.89 Other specified places as the place of occurrence of the external cause; Y99.8 Other external cause status
CPT/HCPCS: 70450

== ENCOUNTER 2022-07-11 12:52 | Inpatient (IN) | payer OTHER, MEDICARE ==
[~2022-07-11] VITALS: Ht 157.5 cm; Wt 70.4 kg
[2022-07-11 13:25] LABS: APPEARANCE,URINE CLEAR (CLEAR); BILIRUBIN,URINE NEGATIVE (NEGATIVE); COLOR,URINE LIGHT-YELLOW (YELLOW); GLUCOSE, URINE (UA) NEGATIVE (NEGATIVE); KETONES,URINE NEGATIVE (NEGATIVE); LEUKOCYTE ESTERASE ,URINE NEGATIVE Leu/uL (NEGATIVE); NITRATE,URINE NEGATIVE (NEGATIVE); OCCULT BLOOD,URINE NEGATIVE (NEGATIVE); PROTEIN,URINE 20 mg/dL (NEGATIVE); UROBILINOGEN,URINE 0.2 mg/dL (0.2-1.0)
[2022-07-11 13:34] LABS: MUCUS,URINE RARE LPF (None Seen); OTHER CASTS, URINE 1 /LPF (None Seen); RBC,URINE 0-1 /HPF (0-1); SQUAMOUS EPITHELIAL CELL,UR RARE /HPF (0-2)
[2022-07-11 13:35] LABS: BASOPHILS % (AUTO) 0.2 % (0.0-5.0); HEMATOCRIT 32.6 % (42-54); LYMPHOCYTES % (AUTO) 7.7 % (21.0-51.0); MEAN CORPUSCULAR HGB CONC 32.5 g/dL (32.0-36.0); MEAN CORPUSCULAR VOLUME 86.2 fL (79-99); MONOCYTES % (AUTO) 10.7 % (3.0-13.0); NEUTROPHILS % (AUTO) 80.9 % (40.0-77.0); PLATELET COUNT (AUTO) 147 K/uL (130-400); RED BLOOD CELL COUNT(AUTO) 3.78 MIL/uL (4.50-6.20); RED CELL DISTRIBUTION WIDTH 14.6 % (11.0-15.5); WHITE BLOOD COUNT (AUTO) 9.6 K/uL (4.8-10.8)
[2022-07-11 13:44] LABS: CREATININE 2.8 mg/dL (0.5-1.5); POTASSIUM 3.1 mmol/L (3.5-5.1)
[2022-07-11 13:49] LABS: ALBUMIN 3.4 g/dL (3.5-5.0); TOTAL PROTEIN, SERUM 7.2 g/dL (6.0-8.3)
[2022-07-11] MEDS ORDERED: ONDANSETRON 4MG INJ IV PRN (17:00)
[2022-07-11] MEDS ORDERED: DOCUSATE SODIUM 100 MG CAP PO PRN (17:00)
[2022-07-11] MEDS ORDERED: ALBUTEROL 0.083% 2.5 MG/3 ML INH IH PRN (17:00)
[2022-07-11] MEDS ORDERED: ZOLPIDEM TARTRATE 5 MG TAB PO PRN (17:00)
[2022-07-11] MEDS ORDERED: POLYETHYLENE GLYCOL 3350 17 GM POWD.PACK PO PRN (17:00)
[2022-07-11] MEDS ORDERED: DIPHENHYDRAMINE HCL 25 MG CAPSULE PO PRN (17:00)
[2022-07-11 18:10] LABS: ABG BASE EXCESS 4.2 mmol/L (-2.0-3.0); ABG HCO3 27.6 mmol/L (21.0-28.0); ABG OXYGEN SATURATION 91.8 % (95.0-99.0); ABG PCO2 38 mmHg (35-48)
[2022-07-11] MEDS: HEPARIN 5,000 UNIT VIAL SQ SCH (20:33)
[2022-07-11] MEDS: FAMOTIDINE 20MG TAB PO SCH (20:33)
[2022-07-11 21:35] LABS: MAGNESIUM 2.4 mg/dL (1.80-2.40); PHOSPHORUS 4.2 mg/dL (2.5-4.9)
[2022-07-11 22:10] VITALS: BP 132/74
[2022-07-12] MEDS: HEPARIN 5,000 UNIT VIAL SQ SCH ×2 (00:12→09:24)
[2022-07-12 03:28] VITALS: BP 130/55
[2022-07-12] MEDS ORDERED: ISOS10TA2 PO (04:24)
[2022-07-12] MEDS ORDERED: METO2.5T2 PO (04:24)
[2022-07-12] MEDS ORDERED: FAMO20TA8 PO (04:24)
[2022-07-12] MEDS ORDERED: FURO40TA5 PO (04:24)
[2022-07-12 04:43] LABS: CHLORIDE,URINE RANDOM 59 mmol/L (110-250); POTASSIUM,URINE RANDOM 22 mmol/L (25-125); SODIUM,URINE RANDOM 44 mmol/l (40-220)
[2022-07-12] MEDS ORDERED: DEXTROSE 50%-WATER 50 ML DISP.SYRIN IV PRN (05:00)
[2022-07-12] MEDS ORDERED: GLUCAGON 1MG KIT 1 MG ML IM PRN (05:00)
[2022-07-12 05:41] LABS: INR 1.05 (0.85-1.15); PROTHROMBIN TIME 11.4 SEC (9.6-11.6)
[2022-07-12 08:00] VITALS: BP 119/62
[2022-07-12] MEDS: INSULIN HUMULIN R 100 UNIT/ML 3ML SQ SCH ×3 (11:30→22:41)
[2022-07-12 11:40] LABS: CREATININE 2.5 mg/dL (0.5-1.5)
[2022-07-12 12:00] VITALS: BP 123/51
[2022-07-12 12:03] LABS: POTASSIUM 2.5 mmol/L (3.5-5.1)
[2022-07-12] MEDS ORDERED: PHARMACY COMMUNICATION MISC SCH (13:00)
[2022-07-12] MEDS: LACTATED RINGERS 1000ML 1,000 ML IV SCH (13:00)
[2022-07-12] MEDS ORDERED: KCL 20 MEQ ERTAB PO ONE (14:00)
[2022-07-12] MEDS ORDERED: POTASSIUM CHLORIDE 10MEQ/100ML 100 ML IV PRN (14:30)
[2022-07-12 16:00] VITALS: BP 136/61
[2022-07-12] MEDS: WARFARIN SODIUM 2 MG TAB PO SCH (16:52)
[2022-07-12] MEDS: ENOXAPARIN SODIUM 60 MG/0.6 ML SQ SCH (16:54)
[2022-07-12] MEDS ORDERED: FUROSEMIDE 40 MG TABLET PO SCH (18:00)
[2022-07-12 20:00] VITALS: BP 145/65
[2022-07-12] MEDS ORDERED: NON-FORMULARY MEDICATION 1 EACH (Metformin HCl (Metformin HCl ER) 500 MG) PO SCH (21:00)
[2022-07-12] MEDS ORDERED: METFORMIN HCL 500 MG TAB.SR.24H PO SCH (21:00)
[2022-07-12] MEDS: ISOSORBIDE DINITRATE 10MG TAB PO SCH (22:41)
[2022-07-12] MEDS: METOPROLOL SUCCINATE 25 MG TAB.SR.24H PO SCH (22:41)
[2022-07-12] MEDS: FAMOTIDINE 20MG TAB PO SCH (22:41)
[2022-07-12] MEDS: POTASSIUM CHLORIDE 10% ELIXIR 20 MEQ/15 ML UDCUP PO PRN (22:42)
[2022-07-13] VITALS: BP 124/86
[2022-07-13 04:00] VITALS: BP 128/65
[2022-07-13 05:56] LABS: HEMATOCRIT 31.6 % (42-54); MEAN CORPUSCULAR VOLUME 87.5 fL (79-99); PLATELET COUNT (AUTO) 160 K/uL (130-400); RED BLOOD CELL COUNT(AUTO) 3.61 MIL/uL (4.50-6.20); RED CELL DISTRIBUTION WIDTH 14.5 % (11.0-15.5); WHITE BLOOD COUNT (AUTO) 9.9 K/uL (4.8-10.8)
[2022-07-13 06:05] LABS: INR 1.02 (0.85-1.15); PROTHROMBIN TIME 11.1 SEC (9.6-11.6)
[2022-07-13 06:17] LABS: % IRON SATURATION 10.5 % (30-44)
[2022-07-13 06:22] LABS: LYMPHOCYTES % (MANUAL) 6 % (22-44); MAN.DIFF COMMENT-IMPRESSION MANUAL DIFFERENTIAL; MONOCYTES % (MANUAL) 10 % (2-9); PLATELET MORPHOLOGY COMMENT ADEQUATE; SEGMENTED NEUTROPHILS % 84 % (40-70)
[2022-07-13 06:37] LABS: CREATININE 2.1 mg/dL (0.5-1.5); MAGNESIUM 2.2 mg/dL (1.80-2.40); PHOSPHORUS 2.4 mg/dL (2.5-4.9); POTASSIUM 3.3 mmol/L (3.5-5.1)
[2022-07-13] MEDS: LACTATED RINGERS 1000ML 1,000 ML IV SCH ×2 (06:38→16:18)
[2022-07-13] MEDS: INSULIN HUMULIN R 100 UNIT/ML 3ML SQ SCH ×4 (06:38→21:00)
[2022-07-13 08:00] VITALS: BP 130/66
[2022-07-13] MEDS: Vitamin B Complex/Vit C/Folic Acid PO SCH (09:47)
[2022-07-13] MEDS: TAMSULOSIN HCL 0.4 MG CAP.ER.24H PO SCH (09:47)
[2022-07-13] MEDS: METOPROLOL SUCCINATE 25 MG TAB.SR.24H PO SCH ×2 (09:47→21:54)
[2022-07-13] MEDS: ISOSORBIDE DINITRATE 10MG TAB PO SCH ×2 (09:48→21:54)
[2022-07-13] MEDS: AMLODIPINE 5 MG TAB PO SCH (09:48)
[2022-07-13] MEDS: POTASSIUM CHLORIDE 10% ELIXIR 20 MEQ/15 ML UDCUP PO PRN (09:48)
[2022-07-13] MEDS: FAMOTIDINE 20MG TAB PO SCH ×2 (09:48→21:54)
[2022-07-13] MEDS: METOLAZONE 2.5 MG TABLET PO SCH (09:48)
[2022-07-13 12:00] VITALS: BP 126/58
[2022-07-13] MEDS: KCL 20 MEQ ERTAB PO PRN ×2 (12:27→17:20)
[2022-07-13] MEDS: ENOXAPARIN SODIUM 60 MG/0.6 ML SQ SCH (15:27)
[2022-07-13 16:00] VITALS: BP 114/70
[2022-07-13] MEDS: WARFARIN SODIUM 2 MG TAB PO SCH (16:18)
[2022-07-13 20:00] VITALS: BP 122/62
[2022-07-14] VITALS (7 sets, daily range): BP systolic 103–139; BP diastolic 47–70
[2022-07-14] MEDS: ALPRAZOLAM 0.5 MG TABLET PO PRN (02:18)
[2022-07-14] MEDS: ACETAMINOPHEN 325 MG TAB PO PRN (02:18)
[2022-07-14 05:12] LABS: BASOPHILS % (AUTO) 0.1 % (0.0-5.0); EOSINOPHILS % (AUTO) 0.1 % (0.0-8.0); LYMPHOCYTES % (AUTO) 10.1 % (21.0-51.0); MEAN CORPUSCULAR HEMOGLOBIN 28.2 pg (27.0-33.0); MEAN CORPUSCULAR HGB CONC 31.8 g/dL (32.0-36.0); MEAN CORPUSCULAR VOLUME 88.6 fL (79-99); MONOCYTES % (AUTO) 9.1 % (3.0-13.0); NEUTROPHILS % (AUTO) 79.9 % (40.0-77.0); PLATELET COUNT (AUTO) 143 K/uL (130-400); RED BLOOD CELL COUNT(AUTO) 3.16 MIL/uL (4.50-6.20); RED CELL DISTRIBUTION WIDTH 14.5 % (11.0-15.5)
[2022-07-14 05:21] LABS: CREATININE 1.8 mg/dL (0.5-1.5); INR 1.06 (0.85-1.15); POTASSIUM 3.8 mmol/L (3.5-5.1); PROTHROMBIN TIME 11.5 SEC (9.6-11.6)
[2022-07-14] MEDS: INSULIN HUMULIN R 100 UNIT/ML 3ML SQ SCH ×4 (06:46→21:04)
[2022-07-14] MEDS: ISOSORBIDE DINITRATE 10MG TAB PO SCH ×2 (09:56→19:58)
[2022-07-14] MEDS: Vitamin B Complex/Vit C/Folic Acid PO SCH (09:56)
[2022-07-14] MEDS: METOPROLOL SUCCINATE 25 MG TAB.SR.24H PO SCH ×2 (09:56→19:58)
[2022-07-14] MEDS: FAMOTIDINE 20MG TAB PO SCH ×2 (09:56→19:58)
[2022-07-14] MEDS: TAMSULOSIN HCL 0.4 MG CAP.ER.24H PO SCH (09:56)
[2022-07-14] MEDS: METOLAZONE 2.5 MG TABLET PO SCH (09:57)
[2022-07-14] MEDS: AMLODIPINE 5 MG TAB PO SCH (09:57)
[2022-07-14] MEDS: LACTATED RINGERS 1000ML 1,000 ML IV SCH (11:29)
[2022-07-14] MEDS ORDERED: COMPOUND IV MISC 1 EACH IVSOLN MISC PRN (12:00)
[2022-07-14] MEDS ORDERED: PHARMACY COMMUNICATION MISC SCH (13:30)
[2022-07-14] MEDS: ENOXAPARIN SODIUM 60 MG/0.6 ML SQ SCH (15:39)
[2022-07-14] MEDS: WARFARIN SODIUM 2.5 MG TAB PO SCH (16:33)
[2022-07-14] MEDS ORDERED: DIATR MEGLU/DIATRIZOATE SODIUM 30 ML BOTTLE ONE (17:47)
[2022-07-14] MEDS ORDERED: IRON SUCROSE COMPLEX 300 MG in 0.9% NACL 250ML 250 ML IV SCH (21:00)
[2022-07-15 04:00] VITALS: BP 116/64
[2022-07-15] MEDS: LACTATED RINGERS 1000ML 1,000 ML IV SCH ×2 (04:35→20:42)
[2022-07-15] MEDS: INSULIN HUMULIN R 100 UNIT/ML 3ML SQ SCH ×4 (06:07→21:00)
[2022-07-15 06:54] LABS: BASOPHILS % (AUTO) 0.1 % (0.0-5.0); EOSINOPHILS % (AUTO) 0.3 % (0.0-8.0); HEMATOCRIT 29.3 % (42-54); MEAN CORPUSCULAR HEMOGLOBIN 28.2 pg (27.0-33.0); MEAN CORPUSCULAR HGB CONC 32.1 g/dL (32.0-36.0); MONOCYTES % (AUTO) 9.8 % (3.0-13.0); NEUTROPHILS % (AUTO) 79.8 % (40.0-77.0); PLATELET COUNT (AUTO) 158 K/uL (130-400); RED BLOOD CELL COUNT(AUTO) 3.33 MIL/uL (4.50-6.20); RED CELL DISTRIBUTION WIDTH 14.4 % (11.0-15.5); WHITE BLOOD COUNT (AUTO) 6.9 K/uL (4.8-10.8)
[2022-07-15 07:09] LABS: CREATININE 1.7 mg/dL (0.5-1.5); POTASSIUM 3.7 mmol/L (3.5-5.1)
[2022-07-15 07:58] VITALS: BP 123/70
[2022-07-15 08:59] LABS: INR 1.13 (0.85-1.15); PROTHROMBIN TIME 12.2 SEC (9.6-11.6)
[2022-07-15] MEDS: ISOSORBIDE DINITRATE 10MG TAB PO SCH ×2 (09:00→20:43)
[2022-07-15] MEDS: AMLODIPINE 5 MG TAB PO SCH (09:00)
[2022-07-15] MEDS: Vitamin B Complex/Vit C/Folic Acid PO SCH (09:00)
[2022-07-15] MEDS: METOPROLOL SUCCINATE 25 MG TAB.SR.24H PO SCH ×2 (09:00→20:43)
[2022-07-15] MEDS: FAMOTIDINE 20MG TAB PO SCH ×2 (09:00→20:43)
[2022-07-15] MEDS: TAMSULOSIN HCL 0.4 MG CAP.ER.24H PO SCH (09:00)
[2022-07-15] MEDS: METOLAZONE 2.5 MG TABLET PO SCH (09:00)
[2022-07-15 12:00] VITALS: BP 120/58
[2022-07-15] MEDS: WARFARIN SODIUM 2.5 MG TAB PO SCH (15:43)
[2022-07-15] MEDS: WARFARIN SODIUM 7.5 MG TAB PO SCH (15:46)
[2022-07-15] MEDS: ENOXAPARIN SODIUM 60 MG/0.6 ML SQ SCH (15:46)
[2022-07-15 16:00] VITALS: BP 114/60
[2022-07-15 20:26] VITALS: BP 121/65
[2022-07-15 23:56] VITALS: BP 116/66
[2022-07-16 03:52] VITALS: BP 123/63
[2022-07-16] MEDS: INSULIN HUMULIN R 100 UNIT/ML 3ML SQ SCH ×4 (05:50→20:41)
[2022-07-16 06:05] LABS: BASOPHILS % (AUTO) 0.1 % (0.0-5.0); EOSINOPHILS % (AUTO) 0.7 % (0.0-8.0); HEMATOCRIT 28.5 % (42-54); LYMPHOCYTES % (AUTO) 15.9 % (21.0-51.0); MEAN CORPUSCULAR HEMOGLOBIN 28.1 pg (27.0-33.0); MEAN CORPUSCULAR HGB CONC 31.9 g/dL (32.0-36.0); MONOCYTES % (AUTO) 10.7 % (3.0-13.0); PLATELET COUNT (AUTO) 170 K/uL (130-400); RED BLOOD CELL COUNT(AUTO) 3.24 MIL/uL (4.50-6.20); RED CELL DISTRIBUTION WIDTH 14.4 % (11.0-15.5); WHITE BLOOD COUNT (AUTO) 7.3 K/uL (4.8-10.8)
[2022-07-16 06:17] LABS: CREATININE 1.7 mg/dL (0.5-1.5); PHOSPHORUS 2.6 mg/dL (2.5-4.9); POTASSIUM 3.7 mmol/L (3.5-5.1)
[2022-07-16 07:35] VITALS: BP 136/90
[2022-07-16 09:02] LABS: INR 1.57 (0.85-1.15); PROTHROMBIN TIME 16.7 SEC (9.6-11.6)
[2022-07-16] MEDS: METOPROLOL SUCCINATE 25 MG TAB.SR.24H PO SCH ×2 (09:05→20:11)
[2022-07-16] MEDS: Vitamin B Complex/Vit C/Folic Acid PO SCH (09:05)
[2022-07-16] MEDS: PREDNISONE 10 MG TABLET PO SCH (09:05)
[2022-07-16] MEDS: TAMSULOSIN HCL 0.4 MG CAP.ER.24H PO SCH (09:05)
[2022-07-16] MEDS: AMLODIPINE 5 MG TAB PO SCH (09:05)
[2022-07-16] MEDS: METOLAZONE 2.5 MG TABLET PO SCH (09:05)
[2022-07-16] MEDS: ISOSORBIDE DINITRATE 10MG TAB PO SCH ×2 (09:06→20:11)
[2022-07-16] MEDS: LACTATED RINGERS 1000ML 1,000 ML IV SCH ×2 (09:06→22:41)
[2022-07-16] MEDS: FAMOTIDINE 20MG TAB PO SCH ×2 (09:06→20:10)
[2022-07-16 11:35] VITALS: BP 123/59
[2022-07-16] MEDS: ENOXAPARIN SODIUM 60 MG/0.6 ML SQ SCH (15:05)
[2022-07-16] MEDS: WARFARIN SODIUM 7.5 MG TAB PO SCH (15:06)
[2022-07-16] MEDS: WARFARIN SODIUM 2.5 MG TAB PO SCH (15:07)
[2022-07-16 15:30] VITALS: BP 128/51
[2022-07-16 20:52] VITALS: BP 117/57
[2022-07-17] VITALS: BP 122/63
[2022-07-17] MEDS: LACTATED RINGERS 1000ML 1,000 ML IV SCH ×2 (00:47→12:47)
[2022-07-17 02:45] LABS: APPEARANCE,URINE CLOUDY (CLEAR); BILIRUBIN,URINE NEGATIVE (NEGATIVE); COLOR,URINE YELLOW (YELLOW); GLUCOSE, URINE (UA) NEGATIVE (NEGATIVE); KETONES,URINE NEGATIVE (NEGATIVE); LEUKOCYTE ESTERASE ,URINE NEGATIVE Leu/uL (NEGATIVE); NITRATE,URINE NEGATIVE (NEGATIVE); OCCULT BLOOD,URINE NEGATIVE (NEGATIVE); PROTEIN,URINE 70 mg/dL (NEGATIVE); UROBILINOGEN,URINE 0.2 mg/dL (0.2-1.0)
[2022-07-17 02:57] LABS: MUCUS,URINE RARE LPF (None Seen); SQUAMOUS EPITHELIAL CELL,UR RARE /HPF (0-2)
[2022-07-17 04:49] VITALS: BP 114/70
[2022-07-17] MEDS: INSULIN HUMULIN R 100 UNIT/ML 3ML SQ SCH ×4 (05:42→20:03)
[2022-07-17 06:23] LABS: BASOPHILS % (AUTO) 0.1 % (0.0-5.0); EOSINOPHILS % (AUTO) 0.1 % (0.0-8.0); HEMATOCRIT 27.4 % (42-54); LYMPHOCYTES % (AUTO) 6.7 % (21.0-51.0); MEAN CORPUSCULAR HEMOGLOBIN 28.3 pg (27.0-33.0); MEAN CORPUSCULAR HGB CONC 32.8 g/dL (32.0-36.0); MEAN CORPUSCULAR VOLUME 86.2 fL (79-99); NEUTROPHILS % (AUTO) 79.7 % (40.0-77.0); PLATELET COUNT (AUTO) 193 K/uL (130-400); RED BLOOD CELL COUNT(AUTO) 3.18 MIL/uL (4.50-6.20); RED CELL DISTRIBUTION WIDTH 14.3 % (11.0-15.5); WHITE BLOOD COUNT (AUTO) 8.3 K/uL (4.8-10.8)
[2022-07-17 06:28] LABS: INR 2.65 (0.85-1.15); PROTHROMBIN TIME 27.3 SEC (9.6-11.6)
[2022-07-17 06:30] LABS: PARTIAL THROMBOPLASTIN TIME 43.9 SEC (26.3-35.5)
[2022-07-17 06:34] LABS: ALBUMIN 2.4 g/dL (3.5-5.0); CREATININE 1.9 mg/dL (0.5-1.5); POTASSIUM 3.7 mmol/L (3.5-5.1); TOTAL PROTEIN, SERUM 5.9 g/dL (6.0-8.3)
[2022-07-17 08:03] VITALS: BP 102/79
[2022-07-17] MEDS: AMLODIPINE 5 MG TAB PO SCH (09:10)
[2022-07-17] MEDS: Vitamin B Complex/Vit C/Folic Acid PO SCH (09:10)
[2022-07-17] MEDS: TAMSULOSIN HCL 0.4 MG CAP.ER.24H PO SCH (09:10)
[2022-07-17] MEDS: FAMOTIDINE 20MG TAB PO SCH ×2 (09:10→20:02)
[2022-07-17] MEDS: METOLAZONE 2.5 MG TABLET PO SCH (09:10)
[2022-07-17] MEDS: ISOSORBIDE DINITRATE 10MG TAB PO SCH ×2 (09:10→20:02)
[2022-07-17] MEDS: PREDNISONE 10 MG TABLET PO SCH (09:10)
[2022-07-17] MEDS: METOPROLOL SUCCINATE 25 MG TAB.SR.24H PO SCH ×2 (09:10→20:02)
[2022-07-17] MEDS: ENOXAPARIN SODIUM 60 MG/0.6 ML SQ SCH (10:28)
[2022-07-17] MEDS: WARFARIN SODIUM 2.5 MG TAB PO SCH (10:28)
[2022-07-17] MEDS: WARFARIN SODIUM 7.5 MG TAB PO SCH (10:29)
[2022-07-17] MEDS: GUAIFENESIN SUGAR-FREE 100 MG/5 ML UDCUP PO PRN (10:31)
[2022-07-17 12:02] VITALS: BP 118/66
[2022-07-17 16:00] VITALS: BP 106/86
[2022-07-17 19:56] VITALS: BP 112/75
[2022-07-18] VITALS (7 sets, daily range): BP systolic 97–122; BP diastolic 51–78
[2022-07-18] MEDS: ALPRAZOLAM 0.5 MG TABLET PO PRN (02:26)
[2022-07-18 05:24] LABS: BASOPHILS % (AUTO) 0.1 % (0.0-5.0); HEMATOCRIT 26.6 % (42-54); LYMPHOCYTES % (AUTO) 6.2 % (21.0-51.0); MEAN CORPUSCULAR HEMOGLOBIN 28.5 pg (27.0-33.0); MEAN CORPUSCULAR HGB CONC 33.1 g/dL (32.0-36.0); MEAN CORPUSCULAR VOLUME 86.1 fL (79-99); MONOCYTES % (AUTO) 8.8 % (3.0-13.0); NEUTROPHILS % (AUTO) 82.5 % (40.0-77.0); PLATELET COUNT (AUTO) 195 K/uL (130-400); RED BLOOD CELL COUNT(AUTO) 3.09 MIL/uL (4.50-6.20); RED CELL DISTRIBUTION WIDTH 14.4 % (11.0-15.5); WHITE BLOOD COUNT (AUTO) 7.9 K/uL (4.8-10.8)
[2022-07-18 05:30] LABS: INR 2.85 (0.85-1.15); PROTHROMBIN TIME 29.3 SEC (9.6-11.6)
[2022-07-18 05:31] LABS: PARTIAL THROMBOPLASTIN TIME 40.8 SEC (26.3-35.5)
[2022-07-18] MEDS: INSULIN HUMULIN R 100 UNIT/ML 3ML SQ SCH ×4 (05:33→20:44)
[2022-07-18 06:16] LABS: ALBUMIN 2.3 g/dL (3.5-5.0); CREATININE 2.1 mg/dL (0.5-1.5); POTASSIUM 3.7 mmol/L (3.5-5.1)
[2022-07-18 06:48] LABS: TOTAL PROTEIN, SERUM 5.6 g/dL (6.0-8.3)
[2022-07-18] MEDS: Vitamin B Complex/Vit C/Folic Acid PO SCH (08:33)
[2022-07-18] MEDS: TAMSULOSIN HCL 0.4 MG CAP.ER.24H PO SCH (08:33)
[2022-07-18] MEDS: PREDNISONE 10 MG TABLET PO SCH (08:34)
[2022-07-18] MEDS: FAMOTIDINE 20MG TAB PO SCH ×2 (08:34→20:26)
[2022-07-18] MEDS: METOPROLOL SUCCINATE 25 MG TAB.SR.24H PO SCH ×2 (08:34→20:27)
[2022-07-18] MEDS: METOLAZONE 2.5 MG TABLET PO SCH (08:34)
[2022-07-18] MEDS: AMLODIPINE 5 MG TAB PO SCH (08:34)
[2022-07-18] MEDS: ISOSORBIDE DINITRATE 10MG TAB PO SCH ×2 (08:34→20:27)
[2022-07-18] MEDS: ENOXAPARIN SODIUM 60 MG/0.6 ML SQ SCH (13:57)
[2022-07-18] MEDS: WARFARIN SODIUM 7.5 MG TAB PO SCH (13:57)
[2022-07-18] MEDS: WARFARIN SODIUM 2.5 MG TAB PO SCH (13:57)
[2022-07-18] MEDS ORDERED: PHYTONADIONE 10 MG/1 ML AMP SQ SCH (14:00)
[2022-07-19 03:59] VITALS: BP 110/65
[2022-07-19 04:58] LABS: BASOPHILS % (AUTO) 0.1 % (0.0-5.0); EOSINOPHILS % (AUTO) 0.2 % (0.0-8.0); HEMATOCRIT 28.3 % (42-54); LYMPHOCYTES % (AUTO) 7.1 % (21.0-51.0); MEAN CORPUSCULAR HEMOGLOBIN 28.3 pg (27.0-33.0); MEAN CORPUSCULAR HGB CONC 32.2 g/dL (32.0-36.0); MEAN CORPUSCULAR VOLUME 87.9 fL (79-99); MONOCYTES % (AUTO) 9.4 % (3.0-13.0); NEUTROPHILS % (AUTO) 78.7 % (40.0-77.0); PLATELET COUNT (AUTO) 241 K/uL (130-400); RED BLOOD CELL COUNT(AUTO) 3.22 MIL/uL (4.50-6.20); RED CELL DISTRIBUTION WIDTH 14.4 % (11.0-15.5); WHITE BLOOD COUNT (AUTO) 9.7 K/uL (4.8-10.8)
[2022-07-19 05:08] LABS: INR 2.06 (0.85-1.15); PROTHROMBIN TIME 21.6 SEC (9.6-11.6)
[2022-07-19 05:09] LABS: PARTIAL THROMBOPLASTIN TIME 37.5 SEC (26.3-35.5)
[2022-07-19 05:10] LABS: ALBUMIN 2.3 g/dL (3.5-5.0); CREATININE 2.1 mg/dL (0.5-1.5); POTASSIUM 3.7 mmol/L (3.5-5.1); TOTAL PROTEIN, SERUM 5.6 g/dL (6.0-8.3)
[2022-07-19] MEDS: INSULIN HUMULIN R 100 UNIT/ML 3ML SQ SCH ×4 (05:43→20:54)
[2022-07-19 08:00] VITALS: BP 108/62
[2022-07-19] MEDS: AMLODIPINE 5 MG TAB PO SCH (10:29)
[2022-07-19] MEDS: TAMSULOSIN HCL 0.4 MG CAP.ER.24H PO SCH (10:29)
[2022-07-19] MEDS: ISOSORBIDE DINITRATE 10MG TAB PO SCH ×2 (10:29→20:53)
[2022-07-19] MEDS: FAMOTIDINE 20MG TAB PO SCH ×2 (10:29→20:53)
[2022-07-19] MEDS: Vitamin B Complex/Vit C/Folic Acid PO SCH (10:29)
[2022-07-19] MEDS: METOPROLOL SUCCINATE 25 MG TAB.SR.24H PO SCH ×2 (10:29→20:53)
[2022-07-19] MEDS: METOLAZONE 2.5 MG TABLET PO SCH (10:30)
[2022-07-19 12:00] VITALS: BP 94/56
[2022-07-19 14:24] LABS: INR 1.48 (0.85-1.15); PROTHROMBIN TIME 15.8 SEC (9.6-11.6)
[2022-07-19] MEDS: ENOXAPARIN SODIUM 60 MG/0.6 ML SQ SCH (15:00)
[2022-07-19 16:00] VITALS: BP 124/62
[2022-07-19] MEDS: WARFARIN SODIUM 2.5 MG TAB PO SCH (16:00)
[2022-07-19] MEDS: WARFARIN SODIUM 7.5 MG TAB PO SCH (16:00)
[2022-07-19] MEDS ORDERED: HEPARIN 5,000 UNIT VIAL SQ PRN (18:00)
[2022-07-19] MEDS: HEPARIN 25,000 UNITS/250ML D5W 250 ML IV SCH (18:54)
[2022-07-19 20:51] VITALS: BP 124/73
[2022-07-19 23:43] VITALS: BP 113/54
[2022-07-20] VITALS (7 sets, daily range): BP systolic 107–124; BP diastolic 52–65
[2022-07-20 00:46] LABS: INR 1.15 (0.85-1.15); PROTHROMBIN TIME 12.4 SEC (9.6-11.6)
[2022-07-20 01:06] LABS: PARTIAL THROMBOPLASTIN TIME 128.9 SEC (26.3-35.5)
[2022-07-20] MEDS: HEPARIN 25,000 UNITS/250ML D5W 250 ML IV SCH ×4 (05:01→21:40)
[2022-07-20] MEDS: INSULIN HUMULIN R 100 UNIT/ML 3ML SQ SCH ×4 (06:05→21:41)
[2022-07-20 06:36] LABS: BASOPHILS % (AUTO) 0.2 % (0.0-5.0); EOSINOPHILS % (AUTO) 0.9 % (0.0-8.0); HEMATOCRIT 28.2 % (42-54); LYMPHOCYTES % (AUTO) 9.4 % (21.0-51.0); MEAN CORPUSCULAR HEMOGLOBIN 28.1 pg (27.0-33.0); MEAN CORPUSCULAR HGB CONC 32.3 g/dL (32.0-36.0); MONOCYTES % (AUTO) 9.2 % (3.0-13.0); NEUTROPHILS % (AUTO) 74.7 % (40.0-77.0); NUCLEATED RED BLOOD CELLS 0.2 % (0.0-0.19); PLATELET COUNT (AUTO) 255 K/uL (130-400); RED BLOOD CELL COUNT(AUTO) 3.24 MIL/uL (4.50-6.20); RED CELL DISTRIBUTION WIDTH 14.5 % (11.0-15.5); WHITE BLOOD COUNT (AUTO) 8.6 K/uL (4.8-10.8)
[2022-07-20 06:47] LABS: POTASSIUM 3.4 mmol/L (3.5-5.1)
[2022-07-20] MEDS: METOPROLOL SUCCINATE 25 MG TAB.SR.24H PO SCH ×2 (09:24→21:37)
[2022-07-20] MEDS: TAMSULOSIN HCL 0.4 MG CAP.ER.24H PO SCH (09:24)
[2022-07-20] MEDS: FAMOTIDINE 20MG TAB PO SCH ×2 (09:24→21:37)
[2022-07-20] MEDS: METOLAZONE 2.5 MG TABLET PO SCH (09:24)
[2022-07-20] MEDS: Vitamin B Complex/Vit C/Folic Acid PO SCH (09:24)
[2022-07-20] MEDS: AMLODIPINE 5 MG TAB PO SCH (09:24)
[2022-07-20] MEDS: ISOSORBIDE DINITRATE 10MG TAB PO SCH ×2 (09:25→21:37)
[2022-07-20] MEDS ORDERED: POTASSIUM CHLORIDE 10% ELIXIR 20 MEQ/15 ML UDCUP PO PRN (13:00)
[2022-07-20] MEDS ORDERED: POTASSIUM CHLORIDE 10MEQ/100ML 100 ML IV PRN (13:00)
[2022-07-20] MEDS: ENOXAPARIN SODIUM 60 MG/0.6 ML SQ SCH (15:00)
[2022-07-20] MEDS: KCL 20 MEQ ERTAB PO PRN ×2 (15:37→18:48)
[2022-07-20] MEDS: WARFARIN SODIUM 7.5 MG TAB PO SCH (16:00)
[2022-07-20] MEDS: WARFARIN SODIUM 2.5 MG TAB PO SCH (16:00)
[2022-07-21 04:00] VITALS: BP 117/72
[2022-07-21] MEDS: HEPARIN 25,000 UNITS/250ML D5W 250 ML IV SCH ×3 (06:00→12:00)
[2022-07-21 06:05] LABS: MEAN CORPUSCULAR HEMOGLOBIN 28.7 pg (27.0-33.0); MEAN CORPUSCULAR HGB CONC 33.3 g/dL (32.0-36.0); NUCLEATED RED BLOOD CELLS 0.2 % (0.0-0.19); RED BLOOD CELL COUNT(AUTO) 3.14 MIL/uL (4.50-6.20); RED CELL DISTRIBUTION WIDTH 14.6 % (11.0-15.5); WHITE BLOOD COUNT (AUTO) 9.1 K/uL (4.8-10.8)
[2022-07-21 06:28] LABS: ALBUMIN 2.4 g/dL (3.5-5.0); CREATININE 1.9 mg/dL (0.5-1.5); POTASSIUM 3.6 mmol/L (3.5-5.1); TOTAL PROTEIN, SERUM 5.5 g/dL (6.0-8.3)
[2022-07-21] MEDS: INSULIN HUMULIN R 100 UNIT/ML 3ML SQ SCH ×4 (06:34→21:00)
[2022-07-21 08:00] VITALS: BP 119/60
[2022-07-21] MEDS: METOPROLOL SUCCINATE 25 MG TAB.SR.24H PO SCH ×2 (08:56→21:00)
[2022-07-21] MEDS: FAMOTIDINE 20MG TAB PO SCH ×2 (08:56→21:00)
[2022-07-21] MEDS: TAMSULOSIN HCL 0.4 MG CAP.ER.24H PO SCH (08:56)
[2022-07-21] MEDS: AMLODIPINE 5 MG TAB PO SCH (08:56)
[2022-07-21] MEDS: ISOSORBIDE DINITRATE 10MG TAB PO SCH ×2 (08:57→21:00)
[2022-07-21] MEDS: Vitamin B Complex/Vit C/Folic Acid PO SCH (08:57)
[2022-07-21] MEDS: METOLAZONE 2.5 MG TABLET PO SCH (08:57)
[2022-07-21] MEDS: KCL 20 MEQ ERTAB PO PRN ×2 (08:59→12:38)
[2022-07-21 11:39] VITALS: BP 105/58
[2022-07-21] MEDS: ENOXAPARIN SODIUM 60 MG/0.6 ML SQ SCH (15:00)
[2022-07-21 16:00] VITALS: BP 115/50
[2022-07-21] MEDS: WARFARIN SODIUM 7.5 MG TAB PO SCH (16:00)
[2022-07-21 19:30] VITALS: BP 117/60
[2022-07-21 23:00] VITALS: BP 110/64
[2022-07-22] VITALS (13 sets, daily range): BP systolic 93–139; BP diastolic 42–99
[2022-07-22] MEDS: INSULIN HUMULIN R 100 UNIT/ML 3ML SQ SCH ×4 (05:27→21:00)
[2022-07-22 06:18] LABS: BASOPHILS % (AUTO) 0.3 % (0.0-5.0); EOSINOPHILS % (AUTO) 0.7 % (0.0-8.0); HEMATOCRIT 26.6 % (42-54); LYMPHOCYTES % (AUTO) 9.7 % (21.0-51.0); MEAN CORPUSCULAR HEMOGLOBIN 28.6 pg (27.0-33.0); MEAN CORPUSCULAR HGB CONC 32.7 g/dL (32.0-36.0); MEAN CORPUSCULAR VOLUME 87.5 fL (79-99); MONOCYTES % (AUTO) 7.7 % (3.0-13.0); NEUTROPHILS % (AUTO) 78.4 % (40.0-77.0); PLATELET COUNT (AUTO) 272 K/uL (130-400); RED BLOOD CELL COUNT(AUTO) 3.04 MIL/uL (4.50-6.20); RED CELL DISTRIBUTION WIDTH 15.3 % (11.0-15.5); WHITE BLOOD COUNT (AUTO) 7.5 K/uL (4.8-10.8)
[2022-07-22 06:27] LABS: CREATININE 1.8 mg/dL (0.5-1.5); POTASSIUM 3.7 mmol/L (3.5-5.1)
[2022-07-22 06:28] LABS: INR 1.03 (0.85-1.15); PROTHROMBIN TIME 11.2 SEC (9.6-11.6)
[2022-07-22] MEDS: Vitamin B Complex/Vit C/Folic Acid PO SCH (09:00)
[2022-07-22] MEDS: TAMSULOSIN HCL 0.4 MG CAP.ER.24H PO SCH (09:00)
[2022-07-22] MEDS: METOLAZONE 2.5 MG TABLET PO SCH (09:00)
[2022-07-22] MEDS: AMLODIPINE 5 MG TAB PO SCH (09:00)
[2022-07-22] MEDS: ISOSORBIDE DINITRATE 10MG TAB PO SCH ×2 (09:00→22:02)
[2022-07-22] MEDS: FAMOTIDINE 20MG TAB PO SCH ×2 (09:00→22:02)
[2022-07-22] MEDS: METOPROLOL SUCCINATE 25 MG TAB.SR.24H PO SCH ×2 (09:00→22:02)
[2022-07-22] MEDS: HEPARIN 25,000 UNITS/250ML D5W 250 ML IV SCH ×2 (12:00→17:43)
[2022-07-22] MEDS: ENOXAPARIN SODIUM 60 MG/0.6 ML SQ SCH (15:00)
[2022-07-22] MEDS: POTASSIUM CHLORIDE 10% ELIXIR 20 MEQ/15 ML UDCUP PO PRN (22:03)
[2022-07-23 01:34] LABS: BASOPHILS % (AUTO) 0.1 % (0.0-5.0); EOSINOPHILS % (AUTO) 0.2 % (0.0-8.0); HEMATOCRIT 27.1 % (42-54); LYMPHOCYTES % (AUTO) 7.2 % (21.0-51.0); MEAN CORPUSCULAR HEMOGLOBIN 28.4 pg (27.0-33.0); MEAN CORPUSCULAR HGB CONC 32.5 g/dL (32.0-36.0); MEAN CORPUSCULAR VOLUME 87.4 fL (79-99); MONOCYTES % (AUTO) 6.3 % (3.0-13.0); NEUTROPHILS % (AUTO) 84.3 % (40.0-77.0); PLATELET COUNT (AUTO) 293 K/uL (130-400); RED CELL DISTRIBUTION WIDTH 15.6 % (11.0-15.5); WHITE BLOOD COUNT (AUTO) 9.4 K/uL (4.8-10.8)
[2022-07-23 01:41] LABS: CREATININE 1.7 mg/dL (0.5-1.5); POTASSIUM 4.1 mmol/L (3.5-5.1)
[2022-07-23 01:45] LABS: INR 1.03 (0.85-1.15); PROTHROMBIN TIME 11.2 SEC (9.6-11.6)
[2022-07-23 01:46] LABS: PARTIAL THROMBOPLASTIN TIME 73.3 SEC (26.3-35.5)
[2022-07-23 03:18] VITALS: BP 121/71
[2022-07-23] MEDS: INSULIN HUMULIN R 100 UNIT/ML 3ML SQ SCH ×4 (05:52→20:48)
[2022-07-23 07:39] LABS: INR 1.05 (0.85-1.15); PROTHROMBIN TIME 11.4 SEC (9.6-11.6)
[2022-07-23 08:00] VITALS: BP 132/65
[2022-07-23] MEDS: METOLAZONE 2.5 MG TABLET PO SCH (09:17)
[2022-07-23] MEDS: Vitamin B Complex/Vit C/Folic Acid PO SCH (09:17)
[2022-07-23] MEDS: TAMSULOSIN HCL 0.4 MG CAP.ER.24H PO SCH (09:18)
[2022-07-23] MEDS: ISOSORBIDE DINITRATE 10MG TAB PO SCH ×2 (09:18→20:49)
[2022-07-23] MEDS: METOPROLOL SUCCINATE 25 MG TAB.SR.24H PO SCH ×2 (09:18→20:49)
[2022-07-23] MEDS: AMLODIPINE 5 MG TAB PO SCH (09:18)
[2022-07-23] MEDS: FAMOTIDINE 20MG TAB PO SCH ×2 (09:18→20:49)
[2022-07-23 12:00] VITALS: BP 104/57
[2022-07-23] MEDS: HEPARIN 25,000 UNITS/250ML D5W 250 ML IV SCH ×4 (12:09→23:36)
[2022-07-23] MEDS: ENOXAPARIN SODIUM 60 MG/0.6 ML SQ SCH (14:46)
[2022-07-23 16:00] VITALS: BP 124/76
[2022-07-23] MEDS: WARFARIN SODIUM 2 MG TAB PO SCH (19:39)
[2022-07-23 20:40] VITALS: BP 115/62
[2022-07-24 00:56] VITALS: BP 116/72
[2022-07-24 04:13] VITALS: BP 145/57
[2022-07-24 05:48] LABS: BASOPHILS % (AUTO) 0.1 % (0.0-5.0); EOSINOPHILS % (AUTO) 0.8 % (0.0-8.0); HEMATOCRIT 26.4 % (42-54); LYMPHOCYTES % (AUTO) 10.5 % (21.0-51.0); MEAN CORPUSCULAR HEMOGLOBIN 28.3 pg (27.0-33.0); MEAN CORPUSCULAR HGB CONC 32.6 g/dL (32.0-36.0); MEAN CORPUSCULAR VOLUME 86.8 fL (79-99); MONOCYTES % (AUTO) 7.4 % (3.0-13.0); NEUTROPHILS % (AUTO) 79.9 % (40.0-77.0); PLATELET COUNT (AUTO) 275 K/uL (130-400); RED BLOOD CELL COUNT(AUTO) 3.04 MIL/uL (4.50-6.20); RED CELL DISTRIBUTION WIDTH 16.2 % (11.0-15.5); WHITE BLOOD COUNT (AUTO) 7.7 K/uL (4.8-10.8)
[2022-07-24] MEDS: HEPARIN 25,000 UNITS/250ML D5W 250 ML IV SCH ×3 (06:00→18:00)
[2022-07-24 06:03] LABS: ALBUMIN 2.3 g/dL (3.5-5.0); CREATININE 1.6 mg/dL (0.5-1.5); MAGNESIUM 2.1 mg/dL (1.80-2.40); POTASSIUM 3.8 mmol/L (3.5-5.1); TOTAL PROTEIN, SERUM 5.2 g/dL (6.0-8.3)
[2022-07-24] MEDS: INSULIN HUMULIN R 100 UNIT/ML 3ML SQ SCH ×4 (06:05→21:00)
[2022-07-24 08:00] VITALS: BP 133/73
[2022-07-24] MEDS: Vitamin B Complex/Vit C/Folic Acid PO SCH (10:00)
[2022-07-24] MEDS: FAMOTIDINE 20MG TAB PO SCH ×2 (10:00→21:39)
[2022-07-24] MEDS: TAMSULOSIN HCL 0.4 MG CAP.ER.24H PO SCH (10:00)
[2022-07-24] MEDS: METOLAZONE 2.5 MG TABLET PO SCH (10:01)
[2022-07-24] MEDS: ISOSORBIDE DINITRATE 10MG TAB PO SCH ×2 (10:01→21:39)
[2022-07-24] MEDS: AMLODIPINE 5 MG TAB PO SCH (10:01)
[2022-07-24] MEDS: METOPROLOL SUCCINATE 25 MG TAB.SR.24H PO SCH ×2 (10:01→21:39)
[2022-07-24 12:00] VITALS: BP 143/65
[2022-07-24] MEDS: ENOXAPARIN SODIUM 60 MG/0.6 ML SQ SCH (15:00)
[2022-07-24 16:00] VITALS: BP 114/63
[2022-07-24] MEDS: WARFARIN SODIUM 2 MG TAB PO SCH (18:52)
[2022-07-24 20:40] VITALS: BP 111/53
[2022-07-24] MEDS: GUAIFENESIN SUGAR-FREE 100 MG/5 ML UDCUP PO PRN (21:40)
[2022-07-25 00:29] VITALS: BP 116/54
[2022-07-25 04:38] VITALS: BP 112/79
[2022-07-25 04:53] LABS: BASOPHILS % (AUTO) 0.1 % (0.0-5.0); EOSINOPHILS % (AUTO) 0.4 % (0.0-8.0); HEMATOCRIT 26.9 % (42-54); MEAN CORPUSCULAR HEMOGLOBIN 28.2 pg (27.0-33.0); MEAN CORPUSCULAR HGB CONC 31.6 g/dL (32.0-36.0); MEAN CORPUSCULAR VOLUME 89.4 fL (79-99); MONOCYTES % (AUTO) 8.4 % (3.0-13.0); NEUTROPHILS % (AUTO) 81.7 % (40.0-77.0); PLATELET COUNT (AUTO) 249 K/uL (130-400); RED BLOOD CELL COUNT(AUTO) 3.01 MIL/uL (4.50-6.20); RED CELL DISTRIBUTION WIDTH 16.2 % (11.0-15.5); WHITE BLOOD COUNT (AUTO) 7.2 K/uL (4.8-10.8)
[2022-07-25 05:08] LABS: ALBUMIN 2.2 g/dL (3.5-5.0); CREATININE 1.6 mg/dL (0.5-1.5); MAGNESIUM 2.1 mg/dL (1.80-2.40); POTASSIUM 3.9 mmol/L (3.5-5.1); TOTAL PROTEIN, SERUM 5.2 g/dL (6.0-8.3)
[2022-07-25] MEDS: HEPARIN 25,000 UNITS/250ML D5W 250 ML IV SCH ×3 (06:00→14:33)
[2022-07-25] MEDS: INSULIN HUMULIN R 100 UNIT/ML 3ML SQ SCH ×3 (07:30→20:43)
[2022-07-25 08:00] VITALS: BP 118/54
[2022-07-25] MEDS: METOLAZONE 2.5 MG TABLET PO SCH (09:53)
[2022-07-25] MEDS: TAMSULOSIN HCL 0.4 MG CAP.ER.24H PO SCH (09:53)
[2022-07-25] MEDS: METOPROLOL SUCCINATE 25 MG TAB.SR.24H PO SCH ×2 (09:54→20:40)
[2022-07-25] MEDS: FAMOTIDINE 20MG TAB PO SCH ×2 (09:54→20:38)
[2022-07-25] MEDS: AMLODIPINE 5 MG TAB PO SCH (09:54)
[2022-07-25] MEDS: Vitamin B Complex/Vit C/Folic Acid PO SCH (09:54)
[2022-07-25] MEDS: ISOSORBIDE DINITRATE 10MG TAB PO SCH ×2 (09:54→20:38)
[2022-07-25 12:00] VITALS: BP 137/85
[2022-07-25 14:15] LABS: INR 1.23 (0.85-1.15); PROTHROMBIN TIME 13.3 SEC (9.6-11.6)
[2022-07-25 16:00] VITALS: BP 131/64
[2022-07-25 20:00] VITALS: BP 105/49
[2022-07-25] MEDS: WARFARIN SODIUM 2 MG TAB PO SCH (20:40)
[2022-07-26] VITALS: BP 130/55
[2022-07-26 04:00] VITALS: BP 143/68
[2022-07-26 05:46] LABS: BASOPHILS % (AUTO) 0.1 % (0.0-5.0); EOSINOPHILS % (AUTO) 0.5 % (0.0-8.0); LYMPHOCYTES % (AUTO) 6.8 % (21.0-51.0); MEAN CORPUSCULAR HEMOGLOBIN 28.5 pg (27.0-33.0); MEAN CORPUSCULAR HGB CONC 32.3 g/dL (32.0-36.0); MEAN CORPUSCULAR VOLUME 88.2 fL (79-99); MONOCYTES % (AUTO) 9.2 % (3.0-13.0); NEUTROPHILS % (AUTO) 82.4 % (40.0-77.0); PLATELET COUNT (AUTO) 277 K/uL (130-400); RED CELL DISTRIBUTION WIDTH 16.7 % (11.0-15.5); WHITE BLOOD COUNT (AUTO) 8.8 K/uL (4.8-10.8)
[2022-07-26] MEDS: HEPARIN 25,000 UNITS/250ML D5W 250 ML IV SCH ×5 (06:00→20:24)
[2022-07-26 06:04] LABS: ALBUMIN 2.6 g/dL (3.5-5.0); CREATININE 1.6 mg/dL (0.5-1.5); MAGNESIUM 1.9 mg/dL (1.80-2.40); POTASSIUM 3.8 mmol/L (3.5-5.1); TOTAL PROTEIN, SERUM 5.9 g/dL (6.0-8.3)
[2022-07-26] MEDS: INSULIN HUMULIN R 100 UNIT/ML 3ML SQ SCH ×4 (07:30→20:23)
[2022-07-26 08:00] VITALS: BP 101/57
[2022-07-26] MEDS: METOLAZONE 2.5 MG TABLET PO SCH (09:58)
[2022-07-26] MEDS: ISOSORBIDE DINITRATE 10MG TAB PO SCH ×2 (09:58→20:21)
[2022-07-26] MEDS: METOPROLOL SUCCINATE 25 MG TAB.SR.24H PO SCH ×2 (09:58→20:21)
[2022-07-26] MEDS: FAMOTIDINE 20MG TAB PO SCH ×2 (09:59→20:21)
[2022-07-26] MEDS: TAMSULOSIN HCL 0.4 MG CAP.ER.24H PO SCH (09:59)
[2022-07-26] MEDS: Vitamin B Complex/Vit C/Folic Acid PO SCH (09:59)
[2022-07-26] MEDS: AMLODIPINE 5 MG TAB PO SCH (09:59)
[2022-07-26] MEDS: KCL 20 MEQ ERTAB PO PRN ×2 (10:00→20:21)
[2022-07-26 11:30] VITALS: BP 107/81
[2022-07-26 16:00] VITALS: BP 143/70
[2022-07-26] MEDS: WARFARIN SODIUM 2 MG TAB PO SCH (17:48)
[2022-07-26 20:00] VITALS: BP 120/58
[2022-07-27] VITALS: BP 106/54
[2022-07-27] MEDS: HEPARIN 25,000 UNITS/250ML D5W 250 ML IV SCH
[2022-07-27] MEDS: BALSAM PERU/CASTOR OIL 60 GM TUBE TP SCH ×2 (00:43→21:27)
[2022-07-27 04:00] VITALS: BP 107/58
[2022-07-27] MEDS: INSULIN HUMULIN R 100 UNIT/ML 3ML SQ SCH ×4 (05:44→20:33)
[2022-07-27 06:16] LABS: HEMATOCRIT 28.1 % (42-54); MEAN CORPUSCULAR HGB CONC 31.7 g/dL (32.0-36.0); MEAN CORPUSCULAR VOLUME 88.4 fL (79-99); RED BLOOD CELL COUNT(AUTO) 3.18 MIL/uL (4.50-6.20); RED CELL DISTRIBUTION WIDTH 16.8 % (11.0-15.5); WHITE BLOOD COUNT (AUTO) 6.9 K/uL (4.8-10.8)
[2022-07-27 06:40] LABS: ALBUMIN 2.1 g/dL (3.5-5.0); CREATININE 1.6 mg/dL (0.5-1.5); MAGNESIUM 1.8 mg/dL (1.80-2.40)
[2022-07-27 08:00] VITALS: BP 108/68
[2022-07-27] MEDS: ISOSORBIDE DINITRATE 10MG TAB PO SCH ×2 (08:42→20:08)
[2022-07-27] MEDS: TAMSULOSIN HCL 0.4 MG CAP.ER.24H PO SCH (08:42)
[2022-07-27] MEDS: AMLODIPINE 5 MG TAB PO SCH (08:42)
[2022-07-27] MEDS: METOLAZONE 2.5 MG TABLET PO SCH (08:42)
[2022-07-27] MEDS: Vitamin B Complex/Vit C/Folic Acid PO SCH (08:42)
[2022-07-27] MEDS: METOPROLOL SUCCINATE 25 MG TAB.SR.24H PO SCH ×2 (08:43→20:34)
[2022-07-27] MEDS: FAMOTIDINE 20MG TAB PO SCH ×2 (08:43→20:08)
[2022-07-27 09:03] LABS: PARTIAL THROMBOPLASTIN TIME 96.8 SEC (26.3-35.5)
[2022-07-27 09:04] LABS: INR 1.85 (0.85-1.15); PROTHROMBIN TIME 19.5 SEC (9.6-11.6)
[2022-07-27 12:00] VITALS: BP 106/52
[2022-07-27 16:00] VITALS: BP 119/65
[2022-07-27] MEDS: WARFARIN SODIUM 2 MG TAB PO SCH (17:47)
[2022-07-27 20:00] VITALS: BP 104/50
[2022-07-28] VITALS: BP 113/58
[2022-07-28 04:00] VITALS: BP 119/72
[2022-07-28 05:07] LABS: BASOPHILS % (AUTO) 0.1 % (0.0-5.0); EOSINOPHILS % (AUTO) 0.6 % (0.0-8.0); HEMATOCRIT 27.6 % (42-54); LYMPHOCYTES % (AUTO) 7.3 % (21.0-51.0); MEAN CORPUSCULAR HEMOGLOBIN 28.8 pg (27.0-33.0); MEAN CORPUSCULAR HGB CONC 31.9 g/dL (32.0-36.0); MEAN CORPUSCULAR VOLUME 90.2 fL (79-99); MONOCYTES % (AUTO) 9.2 % (3.0-13.0); NEUTROPHILS % (AUTO) 81.8 % (40.0-77.0); PLATELET COUNT (AUTO) 221 K/uL (130-400); RED BLOOD CELL COUNT(AUTO) 3.06 MIL/uL (4.50-6.20); RED CELL DISTRIBUTION WIDTH 17.1 % (11.0-15.5); WHITE BLOOD COUNT (AUTO) 6.8 K/uL (4.8-10.8)
[2022-07-28 05:25] LABS: INR 2.19 (0.85-1.15); PROTHROMBIN TIME 22.8 SEC (9.6-11.6)
[2022-07-28 05:34] LABS: ALBUMIN 2.1 g/dL (3.5-5.0); CREATININE 1.7 mg/dL (0.5-1.5); MAGNESIUM 1.8 mg/dL (1.80-2.40); POTASSIUM 4.1 mmol/L (3.5-5.1)
[2022-07-28] MEDS: INSULIN HUMULIN R 100 UNIT/ML 3ML SQ SCH ×4 (06:47→20:42)
[2022-07-28 08:00] VITALS: BP 106/48
[2022-07-28] MEDS: TAMSULOSIN HCL 0.4 MG CAP.ER.24H PO SCH (08:46)
[2022-07-28] MEDS: ISOSORBIDE DINITRATE 10MG TAB PO SCH ×2 (08:46→20:09)
[2022-07-28] MEDS: METOLAZONE 2.5 MG TABLET PO SCH (08:46)
[2022-07-28] MEDS: Vitamin B Complex/Vit C/Folic Acid PO SCH (08:46)
[2022-07-28] MEDS: FAMOTIDINE 20MG TAB PO SCH ×2 (08:46→20:09)
[2022-07-28] MEDS: AMLODIPINE 5 MG TAB PO SCH (08:51)
[2022-07-28] MEDS: METOPROLOL SUCCINATE 25 MG TAB.SR.24H PO SCH ×2 (08:51→20:41)
[2022-07-28 12:00] VITALS: BP 103/58
[2022-07-28] MEDS: ACETAMINOPHEN 325 MG TAB PO PRN (15:35)
[2022-07-28 16:00] VITALS: BP 118/74
[2022-07-28] MEDS: WARFARIN SODIUM 2 MG TAB PO SCH (18:06)
[2022-07-28 20:00] VITALS: BP 100/60
[2022-07-28] MEDS: BALSAM PERU/CASTOR OIL 60 GM TUBE TP SCH (20:11)
[2022-07-28] MEDS ORDERED: MAGNESIUM 2GM PREMIX 50ML 50 ML IV PRN (23:30)
[2022-07-29] VITALS (7 sets, daily range): BP systolic 107–118; BP diastolic 51–70
[2022-07-29 04:29] LABS: BASOPHILS % (AUTO) 0.2 % (0.0-5.0); EOSINOPHILS % (AUTO) 0.6 % (0.0-8.0); HEMATOCRIT 27.6 % (42-54); LYMPHOCYTES % (AUTO) 6.2 % (21.0-51.0); MEAN CORPUSCULAR HEMOGLOBIN 28.3 pg (27.0-33.0); MEAN CORPUSCULAR HGB CONC 31.9 g/dL (32.0-36.0); MEAN CORPUSCULAR VOLUME 88.7 fL (79-99); MONOCYTES % (AUTO) 8.9 % (3.0-13.0); NEUTROPHILS % (AUTO) 83.5 % (40.0-77.0); PLATELET COUNT (AUTO) 207 K/uL (130-400); RED BLOOD CELL COUNT(AUTO) 3.11 MIL/uL (4.50-6.20); RED CELL DISTRIBUTION WIDTH 17.3 % (11.0-15.5); WHITE BLOOD COUNT (AUTO) 6.4 K/uL (4.8-10.8)
[2022-07-29 04:54] LABS: ALBUMIN 2.1 g/dL (3.5-5.0); CREATININE 1.6 mg/dL (0.5-1.5); MAGNESIUM 2.4 mg/dL (1.80-2.40); POTASSIUM 3.9 mmol/L (3.5-5.1); TOTAL PROTEIN, SERUM 4.9 g/dL (6.0-8.3)
[2022-07-29] MEDS: INSULIN HUMULIN R 100 UNIT/ML 3ML SQ SCH ×4 (05:45→20:37)
[2022-07-29] MEDS: METOPROLOL SUCCINATE 25 MG TAB.SR.24H PO SCH ×2 (09:21→20:36)
[2022-07-29] MEDS: AMLODIPINE 5 MG TAB PO SCH (09:21)
[2022-07-29] MEDS: METOLAZONE 2.5 MG TABLET PO SCH (09:21)
[2022-07-29] MEDS: Vitamin B Complex/Vit C/Folic Acid PO SCH (09:21)
[2022-07-29] MEDS: TAMSULOSIN HCL 0.4 MG CAP.ER.24H PO SCH (09:21)
[2022-07-29] MEDS: FAMOTIDINE 20MG TAB PO SCH ×2 (09:21→20:36)
[2022-07-29] MEDS: ISOSORBIDE DINITRATE 10MG TAB PO SCH ×2 (09:21→20:36)
[2022-07-29] MEDS ORDERED: Folic Acid/Vitamin B Comp W-C PO (11:05)
[2022-07-29] MEDS ORDERED: FAMO20TA8 PO (11:05)
[2022-07-29] MEDS ORDERED: Warfarin Sodium PO (11:05)
[2022-07-29] MEDS: WARFARIN SODIUM 2 MG TAB PO SCH (17:41)
[2022-07-30 05:19] LABS: HEMATOCRIT 27.6 % (42-54); MEAN CORPUSCULAR HEMOGLOBIN 28.7 pg (27.0-33.0); MEAN CORPUSCULAR HGB CONC 31.5 g/dL (32.0-36.0); MEAN CORPUSCULAR VOLUME 91.1 fL (79-99); RED BLOOD CELL COUNT(AUTO) 3.03 MIL/uL (4.50-6.20); RED CELL DISTRIBUTION WIDTH 17.6 % (11.0-15.5); WHITE BLOOD COUNT (AUTO) 6.5 K/uL (4.8-10.8)
[2022-07-30 05:29] VITALS: BP 123/50
[2022-07-30 05:30] LABS: CREATININE 1.6 mg/dL (0.5-1.5)
[2022-07-30] MEDS: INSULIN HUMULIN R 100 UNIT/ML 3ML SQ SCH ×3 (05:32→16:30)
[2022-07-30 07:30] VITALS: BP 134/63
[2022-07-30] MEDS: AMLODIPINE 5 MG TAB PO SCH (09:38)
[2022-07-30] MEDS: METOPROLOL SUCCINATE 25 MG TAB.SR.24H PO SCH (09:39)
[2022-07-30] MEDS: Vitamin B Complex/Vit C/Folic Acid PO SCH (09:39)
[2022-07-30] MEDS: ISOSORBIDE DINITRATE 10MG TAB PO SCH (09:39)
[2022-07-30] MEDS: TAMSULOSIN HCL 0.4 MG CAP.ER.24H PO SCH (09:39)
[2022-07-30] MEDS: METOLAZONE 2.5 MG TABLET PO SCH (09:39)
[2022-07-30] MEDS: FAMOTIDINE 20MG TAB PO SCH (09:39)
[2022-07-30 12:00] VITALS: BP 120/54
[2022-07-30 16:00] VITALS: BP 109/51
== END 2022-07-30 17:45 | disposition home or self-care (01) | DRG 686 ==
LOC: EDH 12:52 → OBSVTOIN 16:48 → EDHIP 16:48 → 3BH 21:48
PROVIDERS: ADMIT Internal Medicine Critical Care Medicine; ATTEND Internal Medicine Critical Care Medicine
PROC: 0TB03ZX Excision of Right Kidney, Percutaneous Approach, Diagnostic (ICD-10-PCS; principal; 2022-07-22)
DX: C64.1 Malignant neoplasm of right kidney, except renal pelvis (principal); N18.6 End stage renal disease; D68.9 Coagulation defect, unspecified; I13.2 Hypertensive heart and chronic kidney disease with heart failure and with stage 5 chronic kidney disease, or end stage renal disease; E87.3 Alkalosis; I42.0 Dilated cardiomyopathy; I50.42 Chronic combined systolic (congestive) and diastolic (congestive) heart failure; N17.9 Acute kidney failure, unspecified; E11.22 Type 2 diabetes mellitus with diabetic chronic kidney disease; E87.6 Hypokalemia; X58.XXXA Exposure to other specified factors, initial encounter; I35.0 Nonrheumatic aortic (valve) stenosis; K21.9 Gastro-esophageal reflux disease without esophagitis; D64.9 Anemia, unspecified; E78.00 Pure hypercholesterolemia, unspecified; I25.10 Atherosclerotic heart disease of native coronary artery without angina pectoris; S51.812A Laceration without foreign body of left forearm, initial encounter; N40.0 Benign prostatic hyperplasia without lower urinary tract symptoms; Z95.810 Presence of automatic (implantable) cardiac defibrillator; Z95.2 Presence of prosthetic heart valve; Z79.01 Long term (current) use of anticoagulants; Z95.1 Presence of aortocoronary bypass graft; Z91.199 Patient's noncompliance with other medical treatment and regimen due to unspecified reason; Z90.5 Acquired absence of kidney; Z87.891 Personal history of nicotine dependence
CPT/HCPCS: 36415; 36600; 50200; 71045; 73110; 74176; 76770; 76942; 80048; 80051; 80053; 81001; 82330; 82728; 82803; 82948; 83540; 83550; 83735; 84100; 84132; 85025; 85027; 85610; 85730; 87071; 87088; 87205; 93971; 94664; 97039; G0378; J1644; J1650; J1756; J1815; J3430; J3475; J7050; J7512; Q9963